=== PATIENT | male | born 1945 | race Caucasian/White ===

== ENCOUNTER 2016-11-26 13:48 | Inpatient (IN) ==
[2016-11-26] MEDS ORDERED: *HR* Ticagrelor 90 MG TABLET PO ONE (13:51)
[2016-11-26] MEDS ORDERED: *HR* Heparin 5,000 UNIT/ML VIAL IVP ONE (13:52)
[2016-11-26] MEDS ORDERED: *HR* Midazolam HCl 2 MG/2 ML VIAL ONE (13:52)
[2016-11-26] MEDS ORDERED: 0.9 % Sodium Chloride 1,000 ML ONE ×2 (13:53→13:58)
[2016-11-26] MEDS ORDERED: *HR* FentaNYL (PF) 100 MCG/2 ML VIAL ONE (13:53)
--- NOTE | 2016-11-26 13:55 | Emergency Department Note ---
Disposition Clinical Impression: ST elevation myocardial infarction (STEMI) Qualifiers: Involved coronary artery: unspecified coronary artery Qualified Code(s): I21.3 - ST elevation (STEMI) myocardial infarction of unspecified site Disposition: Admitted As Inpatient Condition: Critical Forms: ED Satisfaction Letter Time of Disposition: 14:03 Chest Pain HPI - General Chief Complaint: ED Chest Pain Stated Complaint: Chest Pain Time Seen by Provider: 11/26/16 13:50 Source: patient, EMS Mode of arrival: EMS Limitations: no limitations Vital Signs Reviewed: Yes Nursing Notes Reviewed: Yes - History of Present Illness HPI Narrative: 70-year-old who developed chest pain about 20-30 minutes prior to arrival. - Related Data Home Medications Medication Instructions Recorded Confirmed Duloxetine [Cymbalta] 30 mg PO DAILY 08/01/16 08/01/16 Levothyroxine [Synthroid] 175 mcg PO 0630 08/01/16 08/01/16 Meloxicam [Mobic] 7.5 mg PO DAILY 08/01/16 08/01/16 Omeprazole [PriLOSEC] 40 mg PO DAILY 08/01/16 08/01/16 Previous Rx's Medication Instructions Recorded Clindamycin [Cleocin] 150 mg PO Q6HR #8 capsule 07/31/16 OxyCODONE Immed Rel [Roxicodone 5 5 - 10 mg PO Q8HR PRN #30 tablet 07/31/16 MG] Allergies Allergy/AdvReac Type Severity Reaction Status Date / Time codeine AdvReac Severe Abdominal Verified 08/01/16 12:02 Pain Constitutional: Denies: fever, chills, weakness, weight change Eyes: Denies: eye pain, eye discharge, vision change ENT ED: Denies: ear pain, throat pain, dental pain, hearing loss, epistaxis, congestion, dysphagia Cardiovascular: Reports: chest pain. Denies: palpitations, dyspnea on exertion , edema, syncope Respiratory: Denies: cough, dyspnea, wheezes, hemoptysis, stridor Gastrointestinal: Denies: abdominal pain, nausea, vomiting, diarrhea, constipation, hematemesis, melena, hematochezia Genitourinary: Denies: urgency, dysuria, frequency, hematuria Musculoskeletal: Denies: back pain, neck pain, arthralgia, myalgia Integumentary: Denies: rash, abrasion, lesions Neurological: Denies: headache, weakness, numbness, paresthesias, confusion, abnormal gait, vertigo Psychiatric: Denies: anxiety, depression, suicidal thoughts, homicidal thoughts , auditory hallucinations, visual hallucinations Endocrine: Denies: fatigue Hematological/Lymphatic: Denies: easy bleeding, easy bruising Allergic/Immunologic: Denies: facial swelling, urticaria Chest Pain PMH - Past Medical History Medical history: Reports: fibromyalgia, GERD, thyroid disease Surgical history: Reports: orthopedic, other, sinus surgery Psychiatric history: Reports: no psych history - Social History Smoking Status: Former smoker Alcohol use: Reports: heavy Drug use: Reports: none Physical Exam - General Limitations: no limitations General appearance: alert, in no apparent distress - Head Head exam: atraumatic, normocephalic, normal inspection - Eye Eye exam: Present: normal appearance, PERRL, EOMI - ENT ENT exam: normal exam, normal oropharynx, mucous membranes moist - Neck Neck exam: Present: normal inspection, full ROM, trachea midline - Chest Chest inspection: Present: normal inspection, symmetric chest wall rise - Respiratory Respiratory exam: Present: normal lung sounds bilaterally - Cardiovascular Cardiovascular exam: Present: regular rate, normal rhythm, normal heart sounds - Abdominal Exam Abdominal exam: Present: soft, Non-Tender. Absent: tenderness, distention, guarding, rebound, rigidity - Extremities Exam Extremities exam: Present: normal inspection, full ROM. Absent: tenderness, pedal edema - Expanded Lower Extremity Exam Neurovascular/Tendon exam: Absent: motor deficit, sensory deficit, tendon deficit Gait: observed and normal - Back Exam Back exam: Present: normal inspection, full ROM. Absent: tenderness - Neurological Exam Neurological exam: Present: alert, oriented X3 - Psychiatric Psychiatric exam: Present: normal affect, normal mood - Skin Skin exam: Present: warm, dry, intact, normal color Course - Consultations Consultation #1: [facility] and was sent immediately to the catheter lab. STEMI was initiated at that time. Time: 14:03 Chest Pain - EKG Data EKG attestation: Yes I reviewed and interpreted this EKG. EKG shows normal: sinus rhythm Rate: bradycardia Rhythm: NSR ST segment elevation in: II, III, aVF ST segment depression in: v1, v2 Interpretation: acute ME Heart Score - Score History: Highly Suspicious EKG: Significant ST-Depression Age: Greater than 65 Risk Factors: Equal/Greater than 3 risk factor or history of atherosclerotic disease Troponin: Less than normal limit HEART Score Total: 8 Critical Care Time Critical Care Time: Yes Total Critical Care Time: 30 Attestation: The high probability of a clinically significant, sudden or life threatening deterioration of the [cardiovascular] system(s) required my full and direct attention, intervention and personal management. The aggregate critical care time was [30] minutes. This time is in addition to time spent performing reported procedures but includes the following: [x] Data Review and interpretation [x] Patient assessment and monitoring of vital signs [x] Documentation [x] Medication orders and management
[2016-11-26 14:01] LABS: Basophils # 0.1 K/mcL (0.0-0.2); Basophils % 0.4 %; Eosinophils # 0.4 K/mcL (0.0-0.6); Hematocrit 50.1 % (37.5-50.1); Hemoglobin 16.5 g/dL (12.9-16.9); Immature Granulocytes % 0.4 % (0-4); Lymphocytes # 5.2 K/mcL (0.6-4.6); Lymphocytes % 38.2 %; Mean Corpuscular HGB Conc 32.9 g/dL (31.6-35.5); Mean Corpuscular Hemoglobin 30.3 pg (28.0-33.3); Mean Corpuscular Volume 91.9 fL (83.0-100.0); Mean Platelet Volume 11.4 fL (9.4-12.4); Monocytes # 1.6 K/mcL (0.0-1.3); Neutrophils # 6.2 K/mcL (1.6-8.9); Platelet Count 283 K/mcL (140-400); Red Blood Count 5.45 M/mcL (4.19-5.50); Red Cell Distribution Width 14.5 % (11.5-14.5)
[2016-11-26 14:05] LABS: Prothrombin Time 11.3 Seconds (9.4-12.1)
[2016-11-26 14:08] LABS: Activated Partial Thrombo Time 27.1 Seconds (26.0-36.0)
[2016-11-26 14:12] LABS: Calcium 9.4 mg/dL (8.6-10.8); Potassium 4.7 mEq/L (3.5-4.5)
[2016-11-26] MEDS ORDERED: Tirofiban 12.5 MG/250ML 12.5 MG/250 ML BAG ONE (14:25)
[2016-11-26] MEDS ORDERED: Ondansetron 4 MG/2 ML VIAL ONE (14:26)
[2016-11-26] MEDS ORDERED: *HR* Metoprolol 5 MG/5 ML VIAL IVP ONE (14:51)
[2016-11-26] MEDS ORDERED: *HR* Morphine 2 MG/ML SYRINGE ONE (14:56)
[2016-11-26] MEDS ORDERED: Ondansetron 4 MG/2 ML VIAL IVP PRN (15:19)
[2016-11-26] MEDS ORDERED: *HR* Morphine 2 MG/ML SYRINGE IVP PRN (15:23)
[2016-11-26] MEDS ORDERED: *HR* Dextrose 50 % in Water (Syg) 50 ML SYRINGE IVP PRN (15:26)
[2016-11-26] MEDS ORDERED: D5% in Water 1,000 ML IVC PRN (15:26)
[2016-11-26] MEDS ORDERED: Dextrose Gel 15 GM PO PRN ×2 (15:26)
[2016-11-26] MEDS ORDERED: Tirofiban 12.5 MG/250ML 12.5 MG/250 ML BAG IVC SCH (15:30)
--- NOTE | 2016-11-26 16:03 | Invasive Diagnostic Lab Proc ---
Name: Shiraz Rocha Given Date of Study: 11/26/2016 Date: 1945 Ht: 72.0in Medical Record#: [id number] Age: 70 Wt: 230.38lb Gender: Male BSA: 2.26 Order #: [id number] BMI: 31.24 Physicians Procedure Physician: Jose Baltazar MD, [facility] Referring MD: Referring MD: Indications Indication STEMI Procedures Performed Procedure L HRT ARTERY/VENTRICLE ANGIO PRQ CARD REVASC UT 1 VSL Pre-Procedure Checklist Pt not NPO for procedure and MD aware. Blood Pressure: 195/104 Rhythm: NSR Plan of Care Patient will tolerate the procedure without complications. Adequate level of comfort will be maintained. Hemodynamics will remain stable Patient will recover from procedure without complications. Respiratory function will be maintained. Cardiac rhythm will remain stable. Patient temperature will be maintained. Patient and/or family have verbalized understanding of the procedure. Patient Education Intravenous Access Time IV Size Location DC'd Fluid/Drip Rate Units RN 02:00 PM 18g 1 09/04" Patent On Arrival Rt Antecubital 0.9NaCl 25 ml/hr Allergies codeine Vital Signs Time BP (mmHg) HR (bpm) O2 Sat. RR (bpm) LOC 02:07 PM 195 / 104 63 98 % 5 = Fully awake and oriented or at pre-proc level 02:20 PM 183 / 98 60 92 % 13 5 = Fully awake and oriented or at pre-proc level 02:25 PM 143 / 95 28 94 % 13 5 = Fully awake and oriented or at pre-proc level 02:30 PM 147 / 96 123 93 % 11 5 = Fully awake and oriented or at pre-proc level 02:35 PM 163 / 84 115 92 % 13 5 = Fully awake and oriented or at pre-proc level 02:41 PM 154 / 97 131 99 % 14 5 = Fully awake and oriented or at pre-proc level 02:46 PM 158 / 86 138 99 % 21 5 = Fully awake and oriented or at pre-proc level 02:50 PM 164 / 91 115 97 % 16 5 = Fully awake and oriented or at pre-proc level 02:55 PM 167 / 92 135 % 17 5 = Fully awake and oriented or at pre-proc level 03:00 PM 138 / 83 121 97 % 19 5 = Fully awake and oriented or at pre-proc level 03:05 PM 152 / 88 103 92 % 21 5 = Fully awake and oriented or at pre-proc level 03:10 PM 149 / 76 106 95 % 16 5 = Fully awake and oriented or at pre-proc level 03:15 PM 153 / 101 109 94 % 12 5 = Fully awake and oriented or at pre-proc level 03:20 PM 142 / 92 123 95 % 10 5 = Fully awake and oriented or at pre-proc level 03:25 PM 145 / 88 120 93 % 17 5 = Fully awake and oriented or at pre-proc level 03:30 PM 145 / 66 59 93 % 16 5 = Fully awake and oriented or at pre-proc level Procedural Medications Time Medication Dose Units Method Given By 02:07 PM Oxygen 2 L/min nasal cannula LiscombJanett guzman RN 02:07 PM Versed 2 mg Intravenous LiscombJanett guzman RN 02:07 PM Fentanyl 50 mcg Intravenous LiscombJanett guzman RN 02:08 PM Lidocaine 2% 20 ml Subcutaneous Jose Baltazar MD, FACC 02:14 PM Hydralazine 20 mg Intravenous LiscombJanett guzman RN 02:20 PM Fentanyl 50 mcg Intravenous MurphyJanett guzman RN 02:24 PM Oxygen 4 L/min nasal cannula LiscombJanett guzman RN 02:27 PM Zofran 4 mg Intravenous Amara Galvez RN 02:27 PM Aggrastat Bolus: 50 ml Amara Galvez RN 02:27 PM Aggrastat 5mg/100ml 18 ml Intravenous Amara Galvez RN 02:28 PM Oxygen 6 L/min nasal cannula LiscombJanett guzman RN 02:30 PM Oxygen 10 L/min simple face mask Janett Arrington RN 02:41 PM Nitroglycerin 200 mcg Intracoronary Jose Baltazar MD 02:46 PM Oxygen 6 L/min oxy mask LiscombJanett guzman RN 02:50 PM Metoprolol 5 mg Intravenous MurphyJanett guzman RN 02:55 PM Morphine 2 mg Intravenous Amara Galvez RN 03:24 PM Cardizem 15 mg Intravenous Amara Galvez RN 03:24 PM Cardizem 5 mg Intravenous Amara Galvez RN ASA Classification: Emergent Procedure: ASA score is assumed Derrick Score Preprocedure Postprocedure Activity 2- Moves 4 extremities sustained head lift Activity 2- Moves 4 extremities sustained head lift Circulation 2- SBP +/= 20 points of pre-anesthetic level Circulation 2- SBP +/= 20 points of pre-anesthetic level Consciousness 2- Awake and alert oriented x 3 Consciousness 2- Awake and alert oriented x 3 O2 Saturation 2- Able to maintain O2 satruation of 92% on room air O2 Saturation 2- Able to maintain O2 satruation of 92% on room air Respiratory 2- Able to deep breathe and cough well Respiratory 2- Able to deep breathe and cough well Total Score 10 Total Score 10 Contrast Agent: Isovue Diagnostic Contrast: 156 ml Total Contrast: 156 ml Fluoro Dose: 1183 mGy Activated Clotting Time Time Seconds to Clot 02:33 PM 246 02:48 PM 160 Procedure Log Time Note Enter By 02:02 PM Meet and greet completed ejohnson 02:02 PM Sign in performed according to hospital policy. ejohnson 02:02 PM Procedure start 14:06 ejohnson 02:02 PM Pt arrived to [facility] at 14:02 ejohnson 02:02 PM No labs available at this time ejohnson 02:03 PM Hair removed from procedure site in procedure lab using clippers. Bilateral groin and right wrist prepped with Chloraprep by Savita Diaz (R), safety strap applied then patient was draped. Skin intact. ejohnson 02:05 PM Patient charges- Angio tray pack, Navilyst 3mm J, Pulse Oximetry and ACIST tubing and transducer ejohnson 02:05 PM NIBP STAT measurement started. 02:06 PM Case Delayed No ejohnson 02:07 PM HR=63 bpm, VDWG=036/104 mmhg, SpO2=98.0 %, Comment=SR 02:07 PM Time out performed according to hospital policy ejohnson 02:07 PM Time: 14:07 Oxygen on at 2 L/min per nasal cannula by Janett Arrington RN ejohnson 02:07 PM Time: 14:07 Versed 2 mg Intravenous Given by Janett Arrington RN ejohnson 02:07 PM Time: 14:07 Fentanyl 50 mcg Intravenous Given by Janett Arrington RN ejohnscristhian 02:08 PM Recorded ECG: HR=30 Condition=Condition 1 02:08 PM Time: 14:08 20 ml Lidocaine 2% to right groin Subcutaneous Given by Jose [facility]zar MD, [facility] ejohnson 02:09 PM Access obtained by percutaneous puncture. 6Fr 10cm Terumo Moberly sheath placed in right Femoral artery. [id number] ejohnson 02:10 PM 5Fr FL 4 catheter inserted over the wire DNC ejohnson 02:11 PM Catheter removed ejohnson 02:12 PM 5Fr FR 4 catheter inserted over the wire DNC ejohnson 02:12 PM Catheter removed ejohnson 02:12 PM 5Fr 3DRC catheter inserted over the wire [id number], then wire removed ejohnson 02:14 PM Catheter removed ejohnson 02:14 PM 5Fr AR 1 catheter inserted over the wire [id number] ejohnson 02:15 PM Time: 14:14 Hydralazine 20 mg Intravenous Given by Janett Arrington RN ejohnson 02:15 PM 5Fr catheter inserted over the wire DNC ejohnson 02:16 PM 6Fr CLS 3.5 Runway guide catheter was used to cannulate the PCI vessel successfully. reused? No ejohnson 02:16 PM LCA angiography performed in multiple views. ejohnson 02:17 PM Recorded Pressure: Ao, HR=57, Condition=Condition 1 (Aorta) Ao 185/98/132 02:17 PM Inflation device was opened. ejohnson 02:18 PM .014 PT Graphix 180cm guide wire across target lesion- successful. reused? No ejohnson 02:18 PM Recorded Pressure: Ao, HR=61, Condition=Condition 1 (Aorta) Ao 176/95/127 02:19 PM Balloon inflated @ 8 serena for 4 seconds ejohnson 02:19 PM Balloon inflated @ 10 serena for 7 seconds ejohnson 02:19 PM 2.5 mm x 20 mm Emerge Monorail balloon across target lesion- successful. reused? No ejohnson 02:20 PM Time: 14:20 Fentanyl 50 mcg Intravenous Given by Janett Arrington RN ejohnson 02:20 PM Vitals capture started with the following parameters, Patient=Adult, Interval=5 min, Initial Pqoxjcgl=540 mmHg, Deflation Rate=5 mmHg, Cuff placed on Left Arm 02:20 PM Balloon inflated @ 8 serena for 4 seconds ejohnson 02:20 PM HR=60 bpm, ZEBH=592/98 mmhg, SpO2=92.0 %, Resp=13 B/min, Comment=SR 02:20 PM Balloon catheter removed intact. ejohnson 02:22 PM Recorded Pressure: Ao, HR=69, Condition=Condition 1 (Aorta) Ao 158/88/117 02:22 PM 3.5mm x 38mm Synergy drug-eluting stent across target lesion- successful Lot #[id number] ejohnson 02:24 PM Recorded Pressure: Ao, HR=57, Condition=Condition 1 (Aorta) Ao 112/66/87 02:24 PM Time: 14:24 Oxygen on at 4 L/min per nasal cannula by Janett Arrington RN ejohnson 02:25 PM HR=28 bpm, CQFJ=758/95 mmhg, SpO2=94.0 %, Resp=13 B/min, Comment=SR 02:27 PM Time: 14:27 Zofran 4 mg Intravenous Given by Amara Galvez RN ejohnscristhian 02:27 PM Time: 14:27 Aggrastat Bolus: 50 ml Given by Amara Galvez RN Andres pump ejnerissanson 02:28 PM Time: 14:27 Aggrastat 5mg/100ml 18 ml Intravenous Given by Amara Galvez RN Andres pump ejohnson 02:28 PM Recorded Pressure: Ao, RG=297, Condition=Condition 1 (Aorta) Ao 115/88/101 02:28 PM Time: 14:28 Oxygen on at 6 L/min per nasal cannula by Janett Arrington RN ejohnson 02:29 PM 3.5mm x 16mm Synergy drug-eluting stent across target lesion- successful Lot #[id number] ejohnson 02:29 PM Balloon inflated @ 14 serena for 56 seconds ejohnson 02:30 PM Stent delivery system removed intact. ejohnson 02:30 PM Time: 14:30 Oxygen on at 10 L/min per oxy face mask by Janett Arrington RN ejohnson 02:30 PM 4.0 mm x 15mm NC Emerge balloon across target lesion- successful. reused? No ejohnson 02:30 PM ID=[id number] bpm, JKMD=873/96 mmhg, SpO2=93.0 %, Resp=11 B/min, Comment=SR 02:32 PM Balloon inflated @ 12 serena for 6 seconds ejohnson 02:33 PM Balloon catheter removed intact. ejohnson 02:33 PM Guide wire removed intact. ejohnson 02:33 PM Guide catheter removed intact. ejohnson 02:35 PM 5Fr MPA catheter inserted over the wire [id number] ejohnson 02:35 PM Catheter removed ejohnson 02:35 PM 5Fr IM catheter inserted over the wire [id number] ejohnson 02:35 PM HP=006 bpm, OWFO=297/84 mmhg, SpO2=92.0 %, Resp=13 B/min, Comment=SR 02:36 PM RCA angiography performed in multiple views. ejohnson 02:37 PM Catheter removed ejohnson 02:37 PM 5Fr AL catheter inserted over the wire [id number] ejohnson 02:39 PM Pressure channel 1 zero failed. 02:39 PM Pressure channel 1 zero failed. 02:39 PM Pressure channel 1 zeroed. 02:40 PM Catheter removed ejohnson 02:40 PM Wire removed ejohnson 02:40 PM 5Fr Pigtail catheter inserted over the wire [facility] ejohnson 02:40 PM Catheter selectively placed in left ventricle ejohnson 02:40 PM Bolus angiogram of left Ventricle complete: 8 ml/sec for a total of 24 mls ejohnson 02:41 PM Recorded Pressure: LV, OH=775, Condition=Condition 1 (Left Ventricle) LV 167/27/53 02:41 PM Recorded Pressure: LV, Ao, QR=545, Condition=Condition 1 (Left Ventricle) LV 163/22/42, (Aorta) Ao ?/?/? 02:41 PM ZG=215 bpm, GZUZ=534/97 mmhg, SpO2=99.0 %, Resp=14 B/min, Comment=SR 02:41 PM Time: 14:41 Nitroglycerin 200 mcg Intracoronary Given by Jose Baltazar MD ejohnson 02:42 PM Recorded Pressure: LV, Ao, RS=590, Condition=Condition 1 (Left Ventricle) LV 120/22/72, (Aorta) Ao ?/?/? 02:46 PM MH=208 bpm, YKBY=661/86 mmhg, SpO2=99.0 %, Resp=21 B/min, Comment=SR 02:47 PM Time: 14:46 Oxygen on at 6 L/min per oxy mask by Janett Arrington RN ejohnson 02:47 PM Catheter removed ejohnson 02:47 PM Procedure completed at 14:47 ejohnson 02:47 PM Sign out completed: Radiation Dose 1182.61 mGy Fluoro Time: 10.6 Isovue 370 - 200ml contrast 156 ml given by Jose Baltazar MD, [facility]. Complications: NoneCardiac Rehab Consult needed: YesConfirmed administered medications: Yes ejohnson 02:47 PM Isovue 370 - 200ml,1 Bottle(s) used. ejohnson 02:49 PM Post ECG Atrial Fibrillation ejohnson 02:49 PM Post Blood Pressure 158/86 ejohnson 02:49 PM 14:49 Post Pulses Bilateral DP \\T\\ PT 1+ ejohnson 02:50 PM Information taught Cardiac Cath and PCI ejohnson 02:50 PM Education needs Procedure, Plan of Care, and Disease Process ejohnson 02:50 PM Time: 14:50 Metoprolol 5 mg Intravenous Given by Janett Arrington RN ejohnson 02:50 PM GS=874 bpm, FAFT=647/91 mmhg, SpO2=97.0 %, Resp=34 B/min, Comment=SR 02:52 PM Learning barriers :None ejohnson 02:52 PM Education Methods Verbal ejohnson 02:52 PM Education evaluation Able to repeat information ejohnson 02:54 PM Time: 14:54 Heparin 2000 units Intravenous Given by Amara Galvez RN ejvtnscristhian 02:54 PM Time: 14:54 Fentanyl 50 mcg Intravenous Given by Amara Galvez RN ejohnson 02:55 PM DB=727 bpm, RXTB=786/92 mmhg, Resp=17 B/min, Comment=SR 02:55 PM Time: 14:55 Morphine 2 mg Intravenous Given by Amara Galvez RN ejvtnscristhian 03:00 PM Arterial sheath pulled using manual compression and sterile 4x4 for 20 minutes by Ynes Gallardo RT (R) ejvtnscristhian 03:00 PM LK=481 bpm, HIRL=234/83 mmhg, SpO2=97.0 %, Resp=9 B/min 03:05 PM VL=934 bpm, KAUY=347/88 mmhg, SpO2=92 %, Resp=21 B/min 03:10 PM TD=065 bpm, ZIZP=858/76 mmhg, SpO2=95.0 %, Resp=36 B/min 03:10 PM Coronary Dominance: right ejohnson 03:11 PM Lesion found in Proximal Circumflex. Pre Stenosis: 100 Pre EDUARDA Flow: 0: No Flow/No perfusion ejohnson 03:11 PM Circumflex, Obtuse Marginal, Left Posterior Descending, and Left Posterolateral Coronary Arteries with 100 % stenosis. ejohnson 03:15 PM RS=174 bpm, GIRI=849/101 mmhg, SpO2=94.0 %, Resp=12 B/min, Comment=SR 03:20 PM Site status No bleeding/hematoma - Rt Groin as reported by Ynes Gallardo RT (R) at 15:20 ejohnson 03:20 PM Time: 15:24 Cardizem 15 mg IV bolus over 5 minutes Intravenous Given by mAara Galvez RN ejohnson 03:20 PM ID=[id number] bpm, ELGS=594/92 mmhg, SpO2=95 %, Resp=10 B/min 03:25 PM TY=256 bpm, AQQZ=472/88 mmhg, SpO2=93.0 %, Resp=17 B/min, Comment=SR 03:25 PM Time: 15:24 Cardizem 5 mg Intravenous Given by Amara Galvez RN Andres pump ejohnson 03:26 PM Recorded Pressure: Ao, HR=65, Condition=Condition 1 (Aorta) Ao -16/-16/-16 03:30 PM HR=59 bpm, WBRT=331/66 mmhg, SpO2=93 %, Resp=16 B/min 03:40 PM Family placed in holding area, ICU. ejohnson 03:40 PM Complications: None ejohnson 03:40 PM Patient out of room: 15:40 ejohnson Complications Complication None None Hemodynamics Pressures Site Systolic/A Wave Diastolic/V Wave Mean AO 185 98 132 AO 176 95 127 AO 158 88 117 AO 112 66 87 AO 115 88 101 LV 167 27 53 LV 163 22 42 AO LV 120 22 72 AO AO -16 -16 -16 Post Procedure Information Blood Pressure: 158/86 mmHg Rhythm: Atrial Fibrillation Post procedural instructions were given Closure Device Time Device Success/Fail 11/26/2016 3:00:00 PM Mechanical Compression Successful Site Checks Time Location Status Staff Sheath In? Note 03:40 PM Rt Groin No bleeding/hematoma Ynes Gallardo RT (R) Pulses Time Site Pre-Procedure Post-Procedure Note 2:02:00 PM Bilateral DP \\T\\ PT 1+ 11/26/2016 3:09:00 PM Bilateral DP \\T\\ PT 1+ Updated by Amara Galvez RN on 11/26/2016 3:58:11 PM Amara Galvez RN electronically signed on 11/26/2016 3:58:51 PM with status of Final
[2016-11-26] MEDS ORDERED: *HR* Morphine 2 MG/ML SYRINGE IVP ONE (16:35)
[2016-11-26] MEDS ORDERED: Nitroglycerin 1 INCH/GM PACKET ONE (18:00)
--- NOTE | 2016-11-26 18:00 | Pre-Sedation Evaluation ---
Pre-sedation evaluation - Pre-sedation checklist Date of procedure: 11/26/16 Procedure: [facility] Recent Vitals: Last Vital Signs Temp 97.6 F 11/26/16 16:19 Pulse 54 11/26/16 17:19 Resp 20 11/26/16 17:19 BP 167/99 11/26/16 17:19 Pulse Ox 96 11/26/16 17:19 H&P (including ROS) documented in medical record: Yes Previous reaction to sedatives/anesthetics: No Dietary Status: unknown Airway Assessment: Patient can open mouth completely, TMJ function normal If Yes;: Morbid obesity ASA Classification *see protocol: CLASS II-Mild systemic disease, E-EMERGENCY- Add to any of the above to indicate emergent Plan of Care: Pt appropriate candidate for procedure/moderate/conscious sedation , Risks/benefits of procedure/sedation discussed w/ patient/family (stemi)
--- NOTE | 2016-11-26 18:02 | Cardiology History & Physical ---
Date of Encounter: 11/26/16 Time of Encounter: 18:00 Assessment and Plan (1) ST elevation myocardial infarction (STEMI) Current Visit: Yes Status: Acute Emergent LHC for STEMI with ongoing crushing chest pressure. Aspirin, Brilinta , Heparin. Patient aware and agreeable with plan. EF assessment, cardiac rehab. The assessment and plan as outlined above was discussed with the patient and/or family members who expressed understanding and agreement. All questions were answered. Qualifiers: Involved coronary artery: other inferior wall coronary artery Qualified Code(s): I21.19 - ST elevation (STEMI) myocardial infarction involving other coronary artery of inferior wall (2) HTN (hypertension) Current Visit: Yes Status: Acute The assessment and plan as outlined above was discussed with the patient and/or family members who expressed understanding and agreement. All questions were answered. Qualifiers: Hypertension type: essential hypertension Qualified Code(s): I10 - Essential (primary) hypertension History of Present Illness Chief complaint: chest pain HPI: Mr. Rocha is a 70 year old male with no previous cardiac history (PMHx fibromyalgia and HTN) presents with severe >10/10 crushing chest pressure slightly radiating backwards but not reaching the back without a tearing/sharp sensation associated with dyspnea starting this morning. EKG shows inferolateral STEMI and emergently taken to [facility]. Past Med Surg Social Fam HX - Past Medical History Medical history: fibromyalgia, GERD, thyroid disease Psychiatric history: no psych history - Past Surgical History Surgical History: orthopedic, other, sinus surgery - Social History Smoking Status: Former smoker Smokeless Tobacco Status: Yes (VAPES) Alcohol use: heavy Drug use: marijuana Medications and Allergies Duloxetine [Cymbalta] 30 mg PO BID 08/01/16 [History] Levothyroxine [Synthroid] 175 mcg PO 0630 08/01/16 [History] Omeprazole [PriLOSEC] 40 mg PO DAILY 08/01/16 [History] Allergies codeine Adverse Reaction (Severe, Verified 08/01/16 12:02) Abdominal Pain severe pain All Systems Review: A 10-system review of systems was performed and is negative for pertinent findings except as documented above in the HPI. - Constitutional Constitutional: no chills, no fever(s) - EENT Eyes: no blurred vision, no loss of vision Nose, mouth and throat: no bleeding gums, no epistaxis - Cardiovascular Cardiovascular: chest pain at rest, chest pain with exertion, dyspnea at rest - Respiratory Respiratory: no hemoptysis, no wheezing - Gastrointestinal Gastrointestinal: no hematemesis, no hematochezia - Genitourinary Genitourinary: no hematuria, no nocturia - Neurological Neurological: no focal weakness, no syncope - Psychiatric Psychiatric: no anxiety, no depression - Hematological/Lymphatic Hematologic/Lymphatic: no easy bleeding, no easy bruising Physical Examination Vital Signs, Last 4 Hours Pulse Resp BP Pulse Ox 11/26/16 17:19 54 20 167/99 96 General: Conversant, Other (distressed) HEENT: Atraumatic, Normocephaly Neck: No JVD Cardiac: Reg Rate and Rhythm Lungs: Normal Breath Sounds Neuro: Alert and responsive Abdomen: Soft Skin: No rashes noted on visualized skin Musculoskeletal: No Chest Wall Tenderness Extremities: No Cyanosis Results 11/26/16 13:53 11/26/16 13:53 - EKG Interpretation EKG results cardiology: personally reviewed (inferolateral current of injury)
[2016-11-26] MEDS: Nitroglycerin 1 INCH/GM PACKET TP ONE (18:03)
[2016-11-26] MEDS: Insulin LISPRO 300 UNITS/3 ML VIAL SQ SCH (18:04)
[2016-11-26] MEDS: *HR* Ticagrelor 90 MG TABLET PO SCH (20:24)
[2016-11-26] MEDS ORDERED: Insulin LISPRO 300 UNITS/3 ML VIAL SQ SCH (21:00)
[2016-11-27 03:52] LABS: Basophils % 0.2 %; Eosinophils # 0.1 K/mcL (0.0-0.6); Eosinophils % 0.7 %; Hematocrit 44.6 % (37.5-50.1); Immature Granulocytes % 0.5 % (0-4); Lymphocytes # 2.2 K/mcL (0.6-4.6); Lymphocytes % 12.5 %; Mean Corpuscular HGB Conc 32.7 g/dL (31.6-35.5); Mean Corpuscular Hemoglobin 30.2 pg (28.0-33.3); Mean Corpuscular Volume 92.1 fL (83.0-100.0); Monocytes # 1.7 K/mcL (0.0-1.3); Monocytes % 9.6 %; Neutrophils # 13.3 K/mcL (1.6-8.9); Platelet Count 262 K/mcL (140-400); Red Blood Count 4.84 M/mcL (4.19-5.50); Red Cell Distribution Width 14.5 % (11.5-14.5); Segmented Neutrophils % 76.5 %
[2016-11-27 03:55] LABS: Hemoglobin 14.6 g/dL (12.9-16.9)
[2016-11-27 04:07] LABS: BUN/Creatinine Ratio 13 (6-26); Blood Urea Nitrogen 15 mg/dL (8-26); Calcium 8.7 mg/dL (8.6-10.8); Carbon Dioxide 21 mEq/L (19-29); Chloride 110 mEq/L (98-109); Glucose 119 mg/dL (70-99); Osmolality,Calculated 290 (280-300); Potassium 3.8 mEq/L (3.5-4.5); Sodium 139 mEq/L (136-145); eGFR For African Americans > 60 (> 60); eGFR For Non-African Americans > 60 (> 60)
[2016-11-27] MEDS: Insulin LISPRO 300 UNITS/3 ML VIAL SQ SCH (07:55)
[2016-11-27] MEDS: *HR* Ticagrelor 90 MG TABLET PO SCH ×2 (07:55→20:31)
[2016-11-27] MEDS ORDERED: Aspirin 81 MG TAB.CHEW PO SCH (09:00)
--- NOTE | 2016-11-27 09:15 | Electrocardiograph Report ---
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
--- NOTE | 2016-11-27 09:15 | Electrocardiograph Report ---
[address] [place], [place] [address] Test Date: 2016-11-26 Pat Name: Shiraz Rocha Department: 109 Room: 01 Gender: M Netezza Developer: : 1945 Requested By: Jose Baltazar Order Number: [id number] Reading MD: Jose Baltazar MD Measurements Intervals [place] Rate: 54 P: 1 [place]: 163 QRS: -47 QRSD: 93 T: 17 QT: 447 QTc: 434 Interpretive Statements SINUS BRADYCARDIA LEFT ANTERIOR FASCICULAR BLOCK MODERATE VOLTAGE CRITERIA FOR LVH, CONSIDER NORMAL VARIANT Electronically Signed On 11-27-2016 9:14:09 EDT by Jose Baltazar MD
--- NOTE | 2016-11-27 09:15 | Electrocardiograph Report ---
[address] [place], [place] [address] Test Date: 2016-11-26 Pat Name: Shiraz Rocha Department: 109 Room: 01 Gender: M Field Support Specialist: : 1945 Requested By: Jose Baltazar Order Number: [id number] Reading MD: Jose Baltazar MD Measurements Intervals [place] Rate: 50 P: 5 TN: 162 QRS: -47 QRSD: 101 T: 21 QT: 453 QTc: 427 Interpretive Statements SINUS BRADYCARDIA LEFT ANTERIOR FASCICULAR BLOCK LEFT VENTRICULAR HYPERTROPHY AND ST-T CHANGE Electronically Signed On 11-27-2016 9:13:58 EDT by Jose Baltazar MD
[2016-11-27] MEDS ORDERED: Perflutren Lipid Microsphere 1.3 ML in 0.9 % Sodium Chloride 8.7 ML IVP ONE (09:25)
--- NOTE | 2016-11-27 09:32 | Invasive Diagnostic Lab ---
Name: Shiraz Rocha Given Date of Study: 11/26/2016 Date: 1945 Ht: 182.9 cm /72.0 in Medical Record#: [id number] Age: 70 Wt: 104.5 kg / 230.38 lb Account/Order#: [id number] Gender: Male BSA: 2.26 Order #: [id number] Fluoro Dose: 1183 mGy BMI: 31.24 Procedure Physician: Jose Baltazar MD, [facility] Referring MD: Referring MD: Procedures Performed: LEFT HEART CATH PCI of Acute CA PTCA W/ DRUG ELUTING STENT Indications: STEMI Impressions: Patient had successful PTCA/Drug-Eluting Stent placement in the mid dominant Circumflex - culprit for CA Recommendations: Optimal medical therapy of patient's disease. Aggressive risk factor modification. History/Risk Factors: Fibromyalgia Procedure Access obtained in the right Femoral artery by percutaneous puncture Patient had successful PTCA/Drug-Eluting Stent placement in the mid Circ. Complications: None Contrast: Isovue 156ml Closure Device: Mechanical Compression Hemodynamics: Pressures Site Systolic/ A Wave Diastolic/ V Wave End Diastolic/ Mean HR AO 185 98 132 57 AO 176 95 127 61 AO 158 88 117 69 AO 112 66 87 57 AO 115 88 101 107 LV 167 27 53 137 LV 163 22 42 106 AO 0 LV 120 22 72 184 AO 0 Coronary Dominance: co Lesion Findings/Interventions * Left Main Coronary Artery The LMCA is angiographically free of disease. * Left Anterior Descending The LAD has mild disease proximal and mid (15-20%). It is a smaller vessel than circumflex/RCA The 1st Diagonal is angiographically free of severe disease. * Circumflex There is a 54 mm long, 100% stenosis in the mid Circumflex. The lesion has a EDUARDA flow of 0 and has thrombus present. An intervention was performed on the mid Circumflex with a final stenosis of 0%. There were no lesion complications. The final EDUARDA flow was 3. * Right Coronary Artery Suboptimal visualization of the RCA despite multiple catheters. No severe lesions visualized and appears to have EDUARDA 3 flow. Interventional Device(s) Vessel Segment Type Name Diameter (mm) Length (mm) Proximal Circumflex Balloon NC Emerge 4 15 Proximal Circumflex Balloon Emerge Monorail 2.5 20 Proximal Circumflex Drug Eluting Stent Synergy 3.5 38 Proximal Circumflex Drug Eluting Stent Synergy 3.5 16 Updated by Amara Galvez RN on 11/26/2016 3:15:05 PM Jose Baltazar MD, FACC electronically signed on 11/27/2016 9:27:42 AM with status of Final
--- NOTE | 2016-11-27 10:14 | Cardiology Progress Note ---
Date of Encounter: 11/27/16 Time of Encounter: 10:11 Assessment and Plan (1) ST elevation myocardial infarction (STEMI) Current Visit: Yes Status: Acute S/P emergent LHC for inferior STEMI yesterday. Successful PTCA/MIGUEL in mid dominant circ--culprit for DE. DAPT (ASA and Brilinta) uninterrupted x 1 year. Pt verbalizes understanding. Continue Statin. Add low dose BB. Echo pending to evaluate EF. Right femoral access site healing well. No bleeding, hematoma or ecchysmosis noted. Pt reports episode of chest pressure last night that resolved with nitro without recurrence. Plan to step down to regular floor today. Possible D/C home tomorrow. Qualifiers: Involved coronary artery: other inferior wall coronary artery Qualified Code(s): I21.19 - ST elevation (STEMI) myocardial infarction involving other coronary artery of inferior wall (2) PAF (paroxysmal atrial fibrillation) Current Visit: Yes Status: Acute Brief episode of PAF s/p LHC in setting of acute DE. Duration very brief without recurrence. No detention anticoagulation warranted unless there would be recurrence. 24 hour tele AVG HR 61, SR. No significant pauses or arrhythmias. Add low dose BB. (3) PRINCE (obstructive sleep apnea) Current Visit: Yes Status: Chronic On CPAP at home. HR into 40s nocturnal. Requested that pt have family bring home CPAP in today. Discussion w patient/family: The assessment and plan as outlined above was discussed with the patient and/or family members who expressed understanding and agreement. All questions were answered. Thank you for involving us in the care of your patient. Please call with any questions. I will discuss all the above with Dr. Ruth and make changes as necessary. Subjective Principal diagnosis: STEMI Interval history: S/P STEMI yesterday--emergent LHC. Successful PTCA/MIGUEL in mid dominant circ-- culprit for DE. Pt had brief episode of PAF immediately post LHC. No recurrence. He reports episode of chest pressure last night relieved with nitro without recurrence. Objective Vital Signs, Last 4 Hours Temp Pulse Resp BP Pulse Ox 11/27/16 08:00 67 14 134/79 94 L 11/27/16 07:47 98.3 F Vital Signs Temp Pulse Resp BP Pulse Ox 11/27/16 08:00 67 14 134/79 94 L 11/27/16 07:47 98.3 F 11/27/16 06:00 70 12 130/95 97 11/27/16 04:24 98.2 F 11/27/16 04:00 58 11/27/16 03:00 60 18 135/87 95 11/27/16 02:30 68 16 138/87 97 11/27/16 01:30 72 16 141/94 94 L 11/27/16 01:00 58 18 138/92 93 L 11/27/16 00:02 97.5 F L 11/27/16 00:00 68 14 136/88 97 11/26/16 22:34 21 137/84 98 11/26/16 22:30 62 12 134/84 98 11/26/16 21:00 60 16 133/79 94 L 11/26/16 20:29 60 12 138/86 95 11/26/16 20:10 97.8 F 11/26/16 19:00 62 12 149/3 97 11/26/16 18:00 51 20 143/91 99 11/26/16 17:19 54 20 167/99 96 11/26/16 16:19 97.6 F 50 20 156/94 96 11/26/16 16:07 55 11/26/16 15:18 159/92 11/26/16 14:00 18 0/0 11/26/16 13:50 97.6 F 53 20 159/92 92 L Intake and Output 11/26/16 11/27/16 11/27/16 23:59 07:59 15:59 Intake Total 480 / 480 473 / 473 240 / 240 Output Total 600 / 600 300 / 300 Balance -120 / -120 173 / 173 240 / 240 Intake: IV Fluids / 33 Aggrastat 12.5 MG/250 ML 33 12.5 mg In 250 ml @ 0.15 MCG/KG/MIN 20.82 mls/hr IVC .Q12H1M [facility] Rx#: [id number] Oral 480 / 480 440 / 440 240 / 240 Output: Urine 600 / 600 300 / 300 Other: Meal Breakfast Percent of Meal Consumed 100% Stool Size Moderate Stool Consistency loose loose Stool Characteristics Normal for Patient Normal for Patient Stool Color Brown Brown # Bowel Movements 1 5 Weight 125.781 kg Patient Weight 11/27/16 23:59 Weight 125.781 kg General: Conversant, No Apparent Distress HEENT: Atraumatic, Normocephaly, Mucus Membranes Moist Neck: No JVD, Normal carotid pulses Cardiac: Reg Rate and Rhythm, Normal S1 and S2, No Murmur Lungs: Normal Breath Sounds, No Wheeze, Rales, Rhonchi Neuro: Alert and responsive, No focal deficits noted Abdomen: Soft, Non-Tender Skin: Other (left femoral access site healing well--no bleeding, hematoma or ecchymosis noted.) Musculoskeletal: No Chest Wall Tenderness Extremities: No Clubbing, No Cyanosis, No Edema, Normal Pulses Results 11/27/16 03:26 11/27/16 03:26 Lab Results 11/27/16 11/27/16 03:26 03:26 WBC 17.4 H Hgb 14.6 D Hct 44.6 Plt Count 262 Sodium 139 Potassium 3.8 Chloride 110 H Carbon Dioxide 21 BUN 15 Creatinine 1.14 Glucose 119 H Calcium 8.7 Short CBC 11/27/16 11/26/16 Range/Units 03:26 13:53 WBC 17.4 H 13.5 H (4.3-11.1) K/mcL Hgb 14.6 D 16.5 (12.9-16.9) g/dL Hct 44.6 50.1 (37.5-50.1) % Plt Count 262 283 (140-400) K/mcL Neutrophils # 13.3 H 6.2 (1.6-8.9) K/mcL BMP 11/27/16 11/26/16 Range/Units 03:26 13:53 Sodium 139 139 (136-145) mEq/L Potassium 3.8 4.7 H (3.5-4.5) mEq/L Chloride 110 H 108 (98-109) mEq/L Carbon Dioxide 21 22 (19-29) mEq/L BUN 15 20 (8-26) mg/dL Creatinine 1.14 1.42 H (0.72-1.25) mg/dL Glucose 119 H 153 H (70-99) mg/dL Calcium 8.7 9.4 (8.6-10.8) mg/dL Cardiac Enzymes 11/26/16 Range/Units 13:53 Troponin I 0.01 (0-0.03) ng/mL Active Medications Acetaminophen (Tylenol) 500 mg PO Q6HR PRN PRN Reason: Mild Pain Stop: 05/28/17 15:24 Last Admin: 11/27/16 02:40 Dose: 500 mg Aspirin (Aspirin) 81 mg PO DAILY [facility] Stop: 05/29/17 09:01 Last Admin: 11/27/16 07:54 Dose: 81 mg Atorvastatin Calcium (Lipitor) 80 mg PO HS [facility] Stop: 05/28/17 21:01 Last Admin: 11/26/16 20:22 Dose: 80 mg Dextrose/Water (Dextrose 50% (Syg)) 25 ml IVP AD PRN PRN Reason: Hypoglycemia Stop: 05/28/17 15:27 Diphenhydramine HCl (Benadryl) 25 mg PO HS PRN PRN Reason: insomnia Stop: 05/28/17 15:20 Glucagon (Glucagen) 1 mg IM ONCE PRN PRN Reason: Hypoglycemia Stop: 05/28/17 15:27 Glucose (Gluctose) 15 gm PO ONCE PRN PRN Reason: Hypoglycemia Stop: 05/28/17 15:27 Glucose (Gluctose) 30 gm PO ONCE PRN PRN Reason: Hypoglycemia Stop: 05/28/17 15:27 Dextrose (Dextrose 5%) 1,000 mls @ 100 mls/hr IVC .Q10H PRN PRN Reason: HYPOGLYCEMIA Stop: 05/28/17 15:27 Insulin Human Lispro (Humalog) 0 units SQ HS [facility] PRN Reason: Protocol Stop: 05/28/17 21:01 Last Admin: 11/26/16 20:30 Dose: Not Given Insulin Human Lispro (Humalog) 0 units SQ TIDAC [facility] PRN Reason: Protocol Stop: 05/28/17 16:31 Last Admin: 11/27/16 07:55 Dose: Not Given Levothyroxine Sodium (Synthroid) 175 mcg PO 0630 [facility] Stop: 05/29/17 06:31 Last Admin: 11/27/16 06:11 Dose: 175 mcg Morphine Sulfate (Morphine Sulfate) 4 mg IVP Q3H PRN PRN Reason: Severe Pain (7-10) Stop: 05/28/17 15:24 Last Admin: 11/26/16 17:33 Dose: 2 mg Nitroglycerin (Nitroglycerin) 1 inch TP ONCE ONE Stop: 11/27/16 17:40 Last Admin: 11/26/16 18:03 Dose: 1 inch Omeprazole (Prilosec) 40 mg PO DAILY [facility] Stop: 05/29/17 09:01 Last Admin: 11/27/16 07:55 Dose: 40 mg Ondansetron HCl (Zofran) 4 mg IVP Q6HR PRN; Protocol PRN Reason: Nausea And Vomiting Stop: 05/28/17 15:20 Last Admin: 11/26/16 17:33 Dose: 4 mg Ticagrelor (Brilinta) 90 mg PO BID [facility] Stop: 05/28/17 21:01 Last Admin: 11/27/16 07:55 Dose: 90 mg - Imaging and Cardiology Echo: pending Cardiac cath: report reviewed - EKG Interpretation EKG results cardiology: other (24 hour tele AVG HR 61, SR. No significant pauses or arrhythmias.) Consult Discharge Plan - Plan Referrals: NO,PCP [Primary Care Provider] -
[2016-11-27] MEDS ORDERED: Metoprolol XL (24 HR) Succ 25 MG TAB.ER.24H PO SCH (10:30)
[2016-11-27] MEDS ORDERED: *HR* Morphine 2 MG/ML SYRINGE IVP PRN (10:44)
[2016-11-27] MEDS ORDERED: Ondansetron 4 MG/2 ML VIAL IVP PRN (10:44)
--- NOTE | 2016-11-27 12:42 | ECHO - Doppler Report ---
Echo with Imaging Enhancement Agent Name: Shiraz Rocha Date of Study: 11/27/2016 Date: 1945 Ht: 72.0 in Medical Record#: [id number] Age: 70 Wt: 277.0 lb Gender: Male BSA: 2.45 Order #: [id number] Location: [facility] Room #: IC1 Reading Physician: Josef Fowler MD, [facility] Cardroom Attendant: Cecelia Benitez Ordering Physician: Jose Baltazar MD, [facility] Primary Physician: Brent Weaver MD Indications: ACS Impressions: Technically sub-optimal due to poor echocardiographic windows. Echo contrast was used. Normal LV systolic function, LVEF 60%. Mild concentric left ventricular hypertrophy. Mild left ventricular diastolic dysfunction. Normal right ventricular size and function. No significant valvular dysfunction. Unable to estimate RVSP due to lack of TR jet. Left Ventricular Wall Motion: Rest Echo Findings All wall segments showed normal motion. Findings: Study Quality * Technically sub-optimal due to poor echocardiographic windows. Echo contrast was used. ECG Findings * Normal sinus rhythm. Left Ventricle * Normal LV systolic function, LVEF 60%. * Mild concentric left ventricular hypertrophy. * Mild left ventricular diastolic dysfunction. Right Ventricle * Normal right ventricular size and function. Left Atrium * Normal left atrial size. Right Atrium * Normal right atrial size. Aorta * Normally sized aortic root. Pericardium * There is no pericardial effusion present. IVC * The IVC is not well evaluated. Aortic Valve * Aortic valve not well visualized. * Normal aortic valve function. Mitral Valve * Mitral valve not well visualized. * Normal mitral valve function. Tricuspid Valve * Tricuspid valve not well visualized. * Normal tricuspid valve function. * Unable to estimate RVSP due to lack of TR jet. Pulmonic Valve * Pulmonic valve not well visualized. * Normal pulmonic valve function. History Hypertension Hypercholesteremia History of CAD/PTCA Myocardial Infarction Contrast: Definity 1.3 ml in 8.7 ml of saline 3 ml. Measurements: BP: 130/ 95 2D Normal Values RVIDd: 3.20 cm IVSd: 1.30 cm 0.6 - 1.0 cm LVIDd: 4.40 cm 3.7 - 5.6 cm LVPWd: 1.20 cm 0.6 - 1.1 cm LVIDs: 2.90 cm 1.5 - 3.6 cm AO: 3.60 cm < 4.0 cm LA volume: 55 Mitral Valve Peak E:.80 m/sec Peak A:1.00 m/sec E/A Ratio:0.8 Updated by Josef Fowler MD, [facility] on 11/27/2016 12:35:25 PM electronically signed on 11/27/2016 12:35:50 PM with status of Final Wall Motion [place]: 1=Normal, 2=Hypokinesis, 3=Akinesis, 4=Dyskinesis, 5=Aneurysmal, 6=Hyperkinetic, X=Not Visualized (Blank)=Missing
[2016-11-27] MEDS: Nitroglycerin 1 INCH/GM PACKET TP ONE (16:05)
[2016-11-27] MEDS ORDERED: 0.9 % Sodium Chloride 1,000 ML IVC SCH (17:00)
[2016-11-27] MEDS: *HR* LORazepam 2 MG/ML VIAL IVP PRN (17:50)
--- NOTE | 2016-11-27 19:17 | Electrocardiograph Report ---
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
[2016-11-28] MEDS: *HR* Metoprolol 5 MG/5 ML VIAL IVP PRN (00:43)
[2016-11-28] MEDS ORDERED: *HR* Heparin 5,000 UNIT/ML VIAL IVP ONE (08:08)
[2016-11-28] MEDS ORDERED: *HR* Heparin 5,000 UNIT/ML VIAL IVP PRN ×2 (08:08)
[2016-11-28] MEDS ORDERED: Heparin 25,000 UNIT/500 ML D5W 25,000 UNIT/500 ML MLS IVC SCH (08:15)
[2016-11-28 08:51] LABS: Basophils % 0.3 %; Eosinophils % 0.3 %; Hematocrit 47.3 % (37.5-50.1); Hemoglobin 15.6 g/dL (12.9-16.9); Immature Granulocytes % 0.5 % (0-4); Immature Platelets 9.7 % (1.1-6.1); Lymphocytes # 1.4 K/mcL (0.6-4.6); Lymphocytes % 10.4 %; Mean Corpuscular Hemoglobin 30.4 pg (28.0-33.3); Mean Corpuscular Volume 92.2 fL (83.0-100.0); Mean Platelet Volume 11.9 fL (9.4-12.4); Monocytes # 2.1 K/mcL (0.0-1.3); Monocytes % 16.3 %; Neutrophils # 9.5 K/mcL (1.6-8.9); Platelet Count 253 K/mcL (140-400); Red Blood Count 5.13 M/mcL (4.19-5.50); Red Cell Distribution Width 14.6 % (11.5-14.5); Segmented Neutrophils % 72.2 %
[2016-11-28 09:00] LABS: INR 1.2; Prothrombin Time 12.6 Seconds (9.4-12.1)
[2016-11-28] MEDS ORDERED: Metoprolol XL (24 HR) Succ 25 MG TAB.ER.24H PO SCH (09:00)
[2016-11-28 09:02] LABS: BUN/Creatinine Ratio 15 (6-26); Blood Urea Nitrogen 20 mg/dL (8-26); Calcium 8.8 mg/dL (8.6-10.8); Carbon Dioxide 15 mEq/L (19-29); Chloride 108 mEq/L (98-109); Glucose 100 mg/dL (70-99); Magnesium 1.6 mg/dL (1.6-2.6); Osmolality,Calculated 281 (280-300); Potassium 3.8 mEq/L (3.5-4.5); Sodium 134 mEq/L (136-145); eGFR For African Americans > 60 (> 60); eGFR For Non-African Americans 52 (> 60)
[2016-11-28 09:02] LABS: Activated Partial Thrombo Time 28.2 Seconds (26.0-36.0)
[2016-11-28] MEDS: Aspirin 81 MG TAB.CHEW PO SCH (09:07)
[2016-11-28] MEDS: *HR* Ticagrelor 90 MG TABLET PO SCH ×2 (09:08→20:08)
[2016-11-28 09:23] LABS: Thyroid Stimulating Hormone 0.043 mcIU/mL (0.350-4.840)
--- NOTE | 2016-11-28 11:13 | Cardiology Progress Note ---
Date of Encounter: 11/27/16 Time of Encounter: 11:10 Assessment and Plan (1) ST elevation myocardial infarction (STEMI) Current Visit: Yes Status: Acute S/P emergent LHC for inferior STEMI 11/26. Successful PTCA/MIGUEL in mid dominant circ--culprit for NH. DAPT (ASA and Brilinta) uninterrupted x 1 year. Pt verbalizes understanding. Continue Statin. Added low dose BB. Echo EF 60%, mild LVH, mild diastolic dysfunction, normal RV structure and function, no significant valvular dysfunction. Right femoral access site healing well. No bleeding, hematoma or ecchysmosis noted. Plan to step down to regular floor today if bed available. Pt reports worsening dyspnea--check CXR. If worsening dyspnea persists, will need to consider switching Brilinta to Plavix. Qualifiers: Involved coronary artery: other inferior wall coronary artery Qualified Code(s): I21.19 - ST elevation (STEMI) myocardial infarction involving other coronary artery of inferior wall (2) PAF (paroxysmal atrial fibrillation) Current Visit: Yes Status: Acute Brief episode of PAF s/p LHC in setting of acute NH. Duration very brief, but now with recurrence and pt has been in A-Fib since yesterday evening. On Cardizem gtt at 15mg/hr and on Toprol XL 12.5mg daily. HR at bedside 60s-low 100s. 24 hour tele AVG HR 110, A-Fib. CHADSVASC score is 2 (Age, CAD). Currently on heparin gtt. Discussed NOAC vs. Coumadin. Will powell check NOAC. Mag 1.6--replace. K 3.8. TSH 0.043. Decrease synthroid to 100mcg. Echo EF 60%, no significant valvular dysfunction. (3) Diarrhea Current Visit: Yes Status: Acute Reports had recent GI virus. Will check for C.Diff while inpt. Qualifiers: Diarrhea type: unspecified type Qualified Code(s): R19.7 - Diarrhea, unspecified (4) Hypothyroidism Current Visit: Yes Status: Chronic Previously hypothyroidism, but now hyperthyroidism. TSH 0.043--decrease synthroid dose to 100mcg. Will have pt follow-up with PCP as outpt. Qualifiers: Hypothyroidism type: unspecified Qualified Code(s): E03.9 - Hypothyroidism , unspecified Discussion w patient/family: The assessment and plan as outlined above was discussed with the patient and/or family members who expressed understanding and agreement. All questions were answered. Thank you for involving us in the care of your patient. Please call with any questions. I will discuss all the above with Dr. Ruth and make changes as necessary. Subjective Principal diagnosis: STEMI Interval history: S/P STEMI and [facility] 11/26. Successful PTCA/MIGUEL in mid dominant circ--culprit for NH. Pt had brief episode of PAF after NH, then went into A-Fib yesterday evening that has persisted. He denies any chest pain. Reports intermittent palpitations and reports dyspnea has worsened. Reports continued diarrhea. Objective Vital Signs, Last 4 Hours Temp Pulse Resp BP Pulse Ox 11/28/16 10:00 96 22 93/73 98 11/28/16 09:00 101 24 93/75 97 11/28/16 08:00 102 26 91/77 98 11/28/16 07:26 96.9 F L Vital Signs Temp Pulse Resp BP Pulse Ox 11/28/16 10:00 96 22 93/73 98 11/28/16 09:00 101 24 93/75 97 11/28/16 08:00 102 26 91/77 98 11/28/16 07:26 96.9 F L 11/28/16 07:00 114 11/28/16 06:00 120 28 97/65 93 L 11/28/16 05:00 122 26 122/106 95 11/28/16 04:00 133 26 106/61 95 11/28/16 03:57 98.4 F 11/28/16 03:40 109 11/28/16 03:00 109 24 97/88 94 L 11/28/16 02:00 115 28 98/69 93 L 11/28/16 01:00 107 24 113/94 99 11/28/16 00:40 99.1 F 11/28/16 00:35 122 11/28/16 00:00 122 24 97/74 95 11/27/16 23:00 113 24 93/75 90 L 11/27/16 22:00 123 26 111/69 91 L 11/27/16 21:00 131 26 119/98 11/27/16 20:53 97.9 F 11/27/16 20:46 121 18 121/77 93 L 11/27/16 20:41 123 11/27/16 20:18 97.9 F 11/27/16 19:00 119 18 139/72 11/27/16 18:30 121 21 125/94 98 11/27/16 18:00 135 22 99/87 97 11/27/16 17:12 84 18 97 11/27/16 11:31 98.0 F Intake and Output 11/27/16 11/28/16 11/28/16 23:59 07:59 15:59 Intake Total 125 / 125 1725 / 1725 70 / 70 Output Total 200 / 200 Balance 125 / 125 1725 / 1725 -130 / -130 Intake: IV Fluids 125 / 125 1125 / 1125 70 / 70 0.9 % Sodium Chloride 1, 1000 / 1000 000 ML @ 75 mls/hr IVC . [id number] [facility] Rx#: [id number] Cardizem 125 MG In 125 / 125 125 / 125 70 / 70 Dextrose 5% 100 ML @ 5 MG /HR 5 mls/hr IVC .Q24H [facility] Rx#:[id number] Oral 600 / 600 Output: Urine 200 / 200 Other: Meal Dinner Percent of Meal Consumed 0% Stool Size Small Stool Consistency liquid liquid Stool Characteristics Normal for Patient Stool Color Yellow Yellow # Voids 3 2 # Bowel Movements 3 2 1 Weight 120.6 kg Patient Weight 11/28/16 23:59 Weight 120.6 kg General: Conversant, No Apparent Distress HEENT: Atraumatic, Normocephaly, Mucus Membranes Moist Neck: No JVD, Normal carotid pulses Cardiac: Other (irregularly irregular) Lungs: Other (diminished) Neuro: Alert and responsive, No focal deficits noted Abdomen: Soft, Non-Tender Skin: No rashes noted on visualized skin Musculoskeletal: No Chest Wall Tenderness Extremities: No Clubbing, No Cyanosis, No Edema, Normal Pulses Results 11/28/16 08:41 11/28/16 08:41 Lab Results 11/28/16 11/28/16 11/28/16 08:37 08:41 08:41 WBC 13.1 H Hgb 15.6 Hct 47.3 Plt Count 253 INR 1.2 APTT 28.2 Sodium 134 L Potassium 3.8 Chloride 108 Carbon Dioxide 15 L BUN 20 Creatinine 1.35 H Glucose 100 H Calcium 8.8 Magnesium 1.6 TSH 0.043 L Short CBC 11/28/16 Range/Units 08:41 WBC 13.1 H (4.3-11.1) K/mcL Hgb 15.6 (12.9-16.9) g/dL Hct 47.3 (37.5-50.1) % Plt Count 253 (140-400) K/mcL Neutrophils # 9.5 H (1.6-8.9) K/mcL BMP 11/28/16 Range/Units 08:41 Sodium 134 L (136-145) mEq/L Potassium 3.8 (3.5-4.5) mEq/L Chloride 108 (98-109) mEq/L Carbon Dioxide 15 L (19-29) mEq/L BUN 20 (8-26) mg/dL Creatinine 1.35 H (0.72-1.25) mg/dL Glucose 100 H (70-99) mg/dL Calcium 8.8 (8.6-10.8) mg/dL Active Medications Acetaminophen (Tylenol) 500 mg PO Q6HR PRN PRN Reason: Mild Pain Stop: 05/28/17 15:24 Aspirin (Aspirin) 81 mg PO DAILY [facility] Stop: 05/29/17 09:01 Last Admin: 11/28/16 09:07 Dose: 81 mg Atorvastatin Calcium (Lipitor) 80 mg PO HS [facility] Stop: 05/28/17 21:01 Last Admin: 11/27/16 20:31 Dose: 80 mg Diphenhydramine HCl (Benadryl) 25 mg PO HS PRN PRN Reason: insomnia Stop: 05/28/17 15:20 Duloxetine HCl (Cymbalta) 30 mg PO BID [facility] Stop: 05/29/17 12:31 Last Admin: 11/28/16 09:08 Dose: 30 mg Heparin Sodium (Porcine) (Heparin) 8,400 unit 70 unit/kg (8400 unit) IVP Q6HR PRN PRN Reason: SEE COMMENTS Stop: 05/30/17 08:09 Heparin Sodium (Porcine) (Heparin) 4,200 unit 35 unit/kg (4200 unit) IVP Q6H PRN PRN Reason: SEE COMMENTS Stop: 05/30/17 08:09 Diltiazem HCl 125 mg/ Dextrose 125 mls @ 5 mls/hr IVC .Q24H [facility]; 5 MG/HR PRN Reason: Protocol Stop: 05/29/17 17:16 Last Titration: 11/28/16 09:30 Dose: 15 mg/hr, 15 mls/hr Heparin Sodium/Dextrose (Heparin 25,000 Unit/500 Ml D5w) 25,000 unit in 500 mls @ 33.768 mls/hr IVC .[id number] [facility]; 14 UNIT/KG/HR PRN Reason: Protocol Stop: 05/30/17 08:16 Last Admin: 11/28/16 09:37 Dose: 14 unit/kg/hr, 33.768 mls/hr Levothyroxine Sodium (Synthroid) 175 mcg PO 0630 [facility] Stop: 05/29/17 06:31 Last Admin: 11/28/16 05:08 Dose: 175 mcg Loperamide HCl (Imodium) 2 mg PO Q4HR PRN PRN Reason: Diarrhea Stop: 05/29/17 16:01 Last Admin: 11/28/16 09:08 Dose: 2 mg Lorazepam (Ativan) 1 mg IVP Q3HR PRN PRN Reason: Agitation Stop: 05/29/17 17:00 Last Admin: 11/27/16 17:50 Dose: 1 mg Metoprolol Succinate (Toprol Xl) 12.[address] [facility] Stop: 05/29/17 10:31 Last Admin: 11/28/16 09:07 Dose: 12.5 mg Metoprolol Tartrate (Lopressor) 5 mg IVP Q2HR PRN PRN Reason: pulse greater than 140 Stop: 05/30/17 00:28 Last Admin: 11/28/16 00:43 Dose: 5 mg Morphine Sulfate (Morphine Sulfate) 4 mg IVP Q3H PRN PRN Reason: Severe Pain (7-10) Stop: 05/28/17 15:24 Omeprazole (Prilosec) 40 mg PO DAILY@0630 [facility] Stop: 05/30/17 06:31 Last Admin: 11/28/16 05:08 Dose: 40 mg Ondansetron HCl (Zofran) 4 mg IVP Q6HR PRN; Protocol PRN Reason: Nausea And Vomiting Stop: 05/28/17 15:20 Ticagrelor (Brilinta) [address] [facility] Stop: 05/28/17 21:01 Last Admin: 11/28/16 09:08 Dose: 90 mg - Imaging and Cardiology Echo: report reviewed Cardiac cath: report reviewed - EKG Interpretation EKG results cardiology: other (24 hour tele AVG HR 110--A-Fib) Consult Discharge Plan - Plan Referrals: NO,PCP [Primary Care Provider] -
[2016-11-28] MEDS ORDERED: Magnesium Sulfate 2 GM in D5% in Water 100 ML IVPB ONE (11:19)
[2016-11-28] MEDS ORDERED: *HR* Rivaroxaban 10 MG TABLET PO SCH (17:00)
--- NOTE | 2016-11-28 18:37 | Electrocardiograph Report ---
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
[2016-11-28] MEDS: Metoprolol XL (24 HR) Succ 25 MG TAB.ER.24H PO SCH (20:08)
[2016-11-29] MEDS: *HR* Metoprolol 5 MG/5 ML VIAL IVP PRN ×2 (01:23→21:11)
[2016-11-29] MEDS ORDERED: 0.9 % Sodium Chloride 500 ML ONE (01:44)
[2016-11-29] MEDS: *HR* Ticagrelor 90 MG TABLET PO SCH (08:31)
[2016-11-29] MEDS: Diltiazem CD (24hr) 120 MG CAPSULE PO SCH (08:31)
[2016-11-29] MEDS: Metoprolol XL (24 HR) Succ 25 MG TAB.ER.24H PO SCH ×2 (08:31→21:42)
[2016-11-29] MEDS: Aspirin 81 MG TAB.CHEW PO SCH (08:31)
--- NOTE | 2016-11-29 09:45 | Cardiology Progress Note ---
Date of Encounter: 11/27/16 Time of Encounter: 09:43 Assessment and Plan (1) ST elevation myocardial infarction (STEMI) Current Visit: Yes Status: Acute S/P emergent LHC for inferior STEMI 11/26. Successful PTCA/MIGUEL in mid dominant circ--culprit for [place]. DAPT (initially ASA and Brilinta) uninterrupted x 1 year. Pt verbalizes understanding. Continue Statin. Added low dose BB. Given persistent dyspnea without explanation (negative CXR, now SR) will switch from Brilinta to Plavix. Stop Brilinta after tonight's dose. Start Plavix 75mg tomorrow AM. Echo EF 60%, mild LVH, mild diastolic dysfunction, normal RV structure and function, no significant valvular dysfunction. Right femoral access site healing well. No bleeding, hematoma or ecchysmosis noted. Unable to discharge given blood in stool this AM. Stopping Xarelto. Continue DAPT. Monitoring closely. Qualifiers: Involved coronary artery: other inferior wall coronary artery Qualified Code(s): I21.19 - ST elevation (STEMI) myocardial infarction involving other coronary artery of inferior wall (2) PAF (paroxysmal atrial fibrillation) Current Visit: Yes Status: Acute Brief episode of PAF s/p LHC in setting of acute [place]. Now with multiple episodes of recurrence--currently SR. On Toprol XL 12.5mg BID and Cardizem CD 120mg daily. CHADSVASC score is 2 (Age, CAD). Started Xarelto 20mg yesterday evening. Now with episode of bloody diarrhea this AM. Will stop Xarelto. STAT CBC pending. Continue to monitor closely after stopping Xarelto. Yesterday Mag 1.6--replaced. K 3.8. TSH 0.043. Decreased synthroid to 100mcg. Today's labs pending. Echo EF 60%, no significant valvular dysfunction. (3) Diarrhea Current Visit: Yes Status: Acute Reports had recent GI virus. Will check for C.Diff while inpt. Qualifiers: Diarrhea type: unspecified type Qualified Code(s): R19.7 - Diarrhea, unspecified (4) Hypothyroidism Current Visit: Yes Status: Chronic Previously hypothyroidism, but now hyperthyroidism. TSH 0.043--decrease synthroid dose to 100mcg. Will have pt follow-up with PCP as outpt. Qualifiers: Hypothyroidism type: unspecified Qualified Code(s): E03.9 - Hypothyroidism , unspecified (5) Blood in stool Current Visit: Yes Status: Acute Observed by RN this AM. Has received one dose of Xarelto yesterday evening. Will stop Xarelto. Continue DAPT for PCI 11/26. CBC pending. Continue to monitor closely. Discussion w patient/family: The assessment and plan as outlined above was discussed with the patient and/or family members who expressed understanding and agreement. All questions were answered. Thank you for involving us in the care of your patient. Please call with any questions. I will discuss all the above with Dr. Ruth and make changes as necessary. Subjective Principal diagnosis: STEMI Interval history: S/P STEMI and LHC 11/26. Successful PTCA/MIGUEL in mid dominant circ--culprit for [place]. Pt had brief episode of PAF after [place], since had multiple recurrent episodes of PAF, was started on Xarelto yesterday evening. He is now in SR. Reports episode of midsternal chest heaviness when rolling on his left side. Reports ongoing dyspnea. CXR showed low lung volumes, but no evidence of CHF or PNA. Paged shortly after leaving room--RN witnessed episode of bloody diarrhea. Labs pending. Objective Vital Signs, Last 4 Hours Temp Pulse Resp BP Pulse Ox 11/29/16 09:35 65 11/29/16 08:15 64 112/84 11/29/16 07:47 98.0 F 64 20 104/72 95 11/29/16 06:00 69 112/79 Vital Signs Temp Pulse Resp BP Pulse Ox 11/29/16 09:35 65 11/29/16 08:15 64 112/84 11/29/16 07:47 98.0 F 64 20 104/72 95 11/29/16 06:00 69 112/79 11/29/16 05:00 60 117/72 11/29/16 04:05 92 102/81 11/29/16 03:51 98.2 F 97 27 130/77 97 11/29/16 03:20 125 11/29/16 03:00 94 119/71 11/29/16 02:30 94 112/85 11/29/16 02:05 119 133/31 11/29/16 01:47 129 92/66 11/28/16 23:40 74 11/28/16 23:38 101.4 F H 79 18 111/85 95 11/28/16 20:15 69 11/28/16 20:01 98.5 F 65 20 121/82 91 L 11/28/16 18:00 79 22 96 11/28/16 17:00 77 20 127/89 97 11/28/16 15:00 74 22 126/96 98 11/28/16 14:00 69 16 102/79 97 11/28/16 12:00 89 20 97/60 96 11/28/16 11:15 98.0 F 11/28/16 10:00 96 22 93/73 98 Intake and Output 11/28/16 11/29/16 11/29/16 23:59 07:59 15:59 Intake Total 968.3 / 968.3 200 / 200 861.7 / 861.7 Output Total 100 / 100 500 / 500 0 / 0 Balance 868.3 / 868.3 -300 / -300 861.7 / 861.7 Intake: IV Fluids 248.3 / 248.3 161.7 / 161.7 0.9 % Sodium Chloride 500 129 / 129 ML As .ROUTE .STK-MED [facility] Rx#:[id number] Cardizem 125 MG In 36.3 / 36.3 32.7 / 32.7 Dextrose 5% 100 ML @ 5 MG /HR 5 mls/hr IVC .Q24H [facility] Rx#:[id number] Heparin 25,000 UNIT/500 212 / 212 ML D5W 25,000 unit In 500 ml @ 14 UNIT/KG/HR 33. 768 mls/hr IVC .[id number] [facility] Rx#:[id number] Oral 720 / 720 200 / 200 700 / 700 Output: Urine 100 / 100 0 / 0 Urine/Stool Mix 500 / 500 Other: Stool Size Small Moderate Stool Consistency liquid liquid Stool Characteristics Normal for Patient Stool Color Yellow Brown # Voids 1 # Bowel Movements 1 1 Weight 120.5 kg Patient Weight 11/29/16 23:59 Weight 120.5 kg General: Conversant, No Apparent Distress HEENT: Atraumatic, Normocephaly, Mucus Membranes Moist Neck: No JVD, Normal carotid pulses Cardiac: Reg Rate and Rhythm, Normal S1 and S2, No Murmur Lungs: Other (diminished) Neuro: Alert and responsive, No focal deficits noted Abdomen: Soft, Non-Tender Skin: No rashes noted on visualized skin Musculoskeletal: No Chest Wall Tenderness Extremities: No Clubbing, No Cyanosis, No Edema, Normal Pulses Results 11/28/16 08:41 11/28/16 08:41 - Imaging and Cardiology Chest Xray: report reviewed Echo: report reviewed Cardiac cath: report reviewed - EKG Interpretation EKG results cardiology: other (24 hour tele AVG HR 80, PAF.) Consult Discharge Plan - Plan Referrals: Brent Weaver Jr, MD [Partnered Physician] - (SENT WEB REQUEST ON 11-29-16 @ [phone] ) NO,PCP [Primary Care Provider] -
[2016-11-29 10:54] LABS: Basophils % 0.1 %; Hematocrit 47.4 % (37.5-50.1); Hemoglobin 16.1 g/dL (12.9-16.9); Immature Granulocytes % 0.5 % (0-4); Lymphocytes # 1.5 K/mcL (0.6-4.6); Lymphocytes % 13.9 %; Mean Corpuscular Volume 91.3 fL (83.0-100.0); Mean Platelet Volume 12.1 fL (9.4-12.4); Monocytes # 1.2 K/mcL (0.0-1.3); Monocytes % 11.6 %; Neutrophils # 7.7 K/mcL (1.6-8.9); Platelet Count 225 K/mcL (140-400); Red Blood Count 5.19 M/mcL (4.19-5.50); Red Cell Distribution Width 14.7 % (11.5-14.5); Segmented Neutrophils % 73.9 %
[2016-11-29 11:05] LABS: Calcium 8.3 mg/dL (8.6-10.8)
--- NOTE | 2016-11-29 12:13 | Event Note ---
Date of Encounter: 11/27/16 Time of Encounter: 12:11 - Cardiology Event Note C.Diff negative. Labs resulted. H&H stable. Now with MAEVE--creatinine was 1.35 yesterday, 2.15 today. Will start IV fluids, consult nephrology. Xarelto was stopped. Continue to monitor closely.
[2016-11-29] MEDS: 0.9 % Sodium Chloride 1,000 ML IVC SCH (13:08)
--- NOTE | 2016-11-29 14:38 | Nephrology Consult Note ---
Date of Encounter: 11/27/16 Time of Encounter: 12:00 Assessment and Plan (1) MAEVE (acute kidney injury) Current Visit: Yes Status: Acute Elevated SCr in the setting of recent STEMI with LHC (doubt contrast nephropathy as over 48hrs in presentation, diarrhea and Afib with hypotensive episodes. Agree with volume resuscitation given preserved EF at 60% Will obtain US of kidney Will check uric acid and CPK levels Will check urine for UA, sodium, creatinine and eosinophils Above nephrotoxins if possible Continue cardiac optimization per primary team No acute indication for BOX BL[employer] M[employer] at this time (2) PAF (paroxysmal atrial fibrillation) Current Visit: Yes Status: Acute (3) ST elevation myocardial infarction (STEMI) Current Visit: Yes Status: Acute Qualifiers: Involved coronary artery: other inferior wall coronary artery Qualified Code(s): I21.19 - ST elevation (STEMI) myocardial infarction involving other coronary artery of inferior wall (4) Acidosis Current Visit: Yes Status: Acute Bicarb noted low due to MAEVE, will repeat volume fiirst and if still low, will start supplements History of Present Illness - Reason for Consult Consult date: 11/29/16 Acute Kidney Injury Requesting physician: Abel Samayoa - History of Present Illness 70 y o female with PMH of HTN, hypothyroidism, Non hodgkin's lymphoma 6 years ago in remission and fibramyalgia admitted 11/27/15 with chest pain diagnosed with STEMI requiring urgent LHC the same day with intervention with stent placed. Stay complicated by persistent diarrhea from viral illness patient has had for several days (cdiff negative) and Afib with hypotension last night. Renal consulted for worsening SCr in the past 24hrs from 1.35, GFR 54 to 2.15, GFR 31. Patient denied any prior history of renal disease. No family history as well although his might be a patient of mine. No urinary sxs. No NSAIDs use recently Past Med Surg Social Fam HX - Past Medical History Medical history: fibromyalgia, GERD, thyroid disease Psychiatric history: no psych history - Past Surgical History Surgical History: orthopedic, other, sinus surgery - Social History Smoking Status: Former smoker Smokeless Tobacco Status: Yes (VAPES) Alcohol use: heavy Drug use: marijuana Medications and Allergies Duloxetine [Cymbalta] 30 mg PO BID 08/01/16 [History] Levothyroxine [Synthroid] 175 mcg PO 0630 08/01/16 [History] Omeprazole [PriLOSEC] 40 mg PO DAILY 08/01/16 [History] Allergies codeine Adverse Reaction (Severe, Verified 08/01/16 12:02) Abdominal Pain severe pain Review of Systems All Systems: reviewed and no additional remarkable complaints except as stated ( ten systems reviewed) Exam - Vital Signs Vital signs: Initial Vital Signs Temp Pulse Resp BP Pulse Ox 97.8 F 59 18 195/125 99 11/26/16 13:50 11/26/16 13:50 11/26/16 13:50 11/26/16 13:50 11/26/16 13:50 Vital Signs - Last 8 Hours Temp Pulse Resp BP Pulse Ox 11/29/16 13:21 58 11/29/16 12:00 58 11/29/16 11:26 98.2 F 59 18 101/68 93 11/29/16 09:35 65 11/29/16 08:15 64 112/84 11/29/16 07:47 98.0 F 64 20 104/72 95 Intake and Output 11/28/16 11/29/16 11/29/16 23:59 07:59 15:59 Intake Total 968.3 / 968.3 200 / 200 1221.7 / 1221.7 Output Total 100 / 100 500 / 500 0 / 0 Balance 868.3 / 868.3 -300 / -300 1221.7 / 1221.7 Intake: IV Fluids 248.3 / 248.3 161.7 / 161.7 0.9 % Sodium Chloride 500 129 / 129 ML As .ROUTE .STK-MED [facility] Rx#:[id number] Cardizem 125 MG In 36.3 / 36.3 32.7 / 32.7 Dextrose 5% 100 ML @ 5 MG /HR 5 mls/hr IVC .Q24H [facility] Rx#:[id number] Heparin 25,000 UNIT/500 212 / 212 ML D5W 25,000 unit In 500 ml @ 14 UNIT/KG/HR 33. 768 mls/hr IVC .[id number] [facility] Rx#:[id number] Oral 720 / 720 200 / 200 1060 / 1060 Output: Urine 100 / 100 0 / 0 Urine/Stool Mix 500 / 500 Other: Meal Lunch Percent of Meal Consumed 0% Stool Size Small Moderate Small Stool Consistency liquid liquid liquid Stool Characteristics Normal for Patient Stool Color Yellow Brown Blood Tinged # Voids 1 1 # Bowel Movements 1 1 1 Weight 120.5 kg Patient Weight 11/29/16 23:59 Weight 120.5 kg - General Appearance General appearance: well-developed, well-nourished (NAD) EENT: ATNC, mucous membranes dry Neck: no JVD, supple Respiratory: clear (ant bilat) Cardiology: no edema, regular rate, regular rhythm, normal S1, normal S2 Gastrointestinal: no tenderness, no guarding Integumentary: warm and dry Neurologic: no focal deficit Musculoskeletal: no deformities Psychiatric: mood/affect appropriate, cooperative Results - Lab Results 11/29/16 10:44 11/29/16 10:44 Most recent lab results Calcium 8.3 mg/dL (8.6-10.8) L 11/29/16 10:44 Magnesium 1.6 mg/dL (1.6-2.6) 11/28/16 08:41 Consult Discharge Plan - Plan Referrals: Brent Weaver Jr, MD [Partnered Physician] - (SENT WEB REQUEST ON 11-29-16 @ [phone] ) NO,PCP [Primary Care Provider] -
[2016-11-29 17:31] LABS: Bilirubin,Urine Small (Negative); Blood,Urine Negative (Negative); Clarity,Urine Clear (Clear); Color,Urine Yellow (Yellow); Glucose,Urine (UA) Normal (Normal); Ketones,Urine Negative (Negative); Leukocyte Esterase,Urine Negative (Negative); Nitrite,Urine Negative (Negative); PH,Urine 5.5 pH Units (5.0-8.0); Protein,Urine 30 mg/dL (Neg-Trace); Specific Gravity,Urine 1.027 (1.010-1.025); Urobilinogen,Urine Normal (Normal)
[2016-11-29 17:34] LABS: Squamous Epithelial Cell,Urine Many per lpf (None-Few); WBC,Urine 0-3 per hpf (0-3)
[2016-11-29 17:53] LABS: Hyaline Casts,Urine Many per lpf (None-Few)
[2016-11-29 17:54] LABS: Bacteria,Urine Few per hpf (None-Few)
[2016-11-29 17:57] LABS: Creatinine,Urine 361 mg/dL
[2016-11-29 19:11] LABS: Sodium, Urine < 20.0 mEq/L
[2016-11-29] MEDS ORDERED: *HR* Ticagrelor 90 MG TABLET PO SCH (21:00)
[2016-11-30] MEDS: *HR* Metoprolol 5 MG/5 ML VIAL IVP PRN (03:53)
[2016-11-30 09:04] LABS: Hemoglobin 16.3 g/dL (12.9-16.9); Mean Corpuscular Hemoglobin 30.5 pg (28.0-33.3); Mean Corpuscular Volume 89.7 fL (83.0-100.0); Mean Platelet Volume 12.1 fL (9.4-12.4); Platelet Count 246 K/mcL (140-400); Red Blood Count 5.35 M/mcL (4.19-5.50); Red Cell Distribution Width 14.6 % (11.5-14.5)
--- NOTE | 2016-11-30 09:09 | Electrocardiograph Report ---
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
[2016-11-30 09:16] LABS: Calcium 8.5 mg/dL (8.6-10.8)
[2016-11-30 09:17] LABS: Potassium 4.5 mEq/L (3.5-4.5)
[2016-11-30] MEDS: Aspirin 81 MG TAB.CHEW PO SCH (09:33)
[2016-11-30] MEDS: Metoprolol XL (24 HR) Succ 25 MG TAB.ER.24H PO SCH ×2 (09:33→20:34)
[2016-11-30] MEDS: Diltiazem CD (24hr) 120 MG CAPSULE PO SCH (09:33)
[2016-11-30] MEDS: 0.9 % Sodium Chloride 1,000 ML IVC SCH (09:37)
[2016-11-30] MEDS ORDERED: *HR* Digoxin 0.5 MG/2 ML AMPUL IVP ONE ×2 (11:55→20:00)
--- NOTE | 2016-11-30 12:20 | Nephrology Progress Note ---
Date of Encounter: 11/30/16 Time of Encounter: 11:55 - Assessment and Plan (1) MAEVE (acute kidney injury) Current Visit: Yes Status: Acute SCr improving at 1.9, GFR 35, will continue VF if possible but add bicarb. Etiology of MAEVE appears to be pre-renal (urine concerntrated with high sp. gravity and sodium<20) Obtain US of kidney Encouraged po fluids as well Continue cardiac optimization per primary team (2) PAF (paroxysmal atrial fibrillation) Current Visit: Yes Status: Acute Per cardiology (3) ST elevation myocardial infarction (STEMI) Current Visit: Yes Status: Acute Per cardiology. s/p LHC with stent on anti-platelet therapy Qualifiers: Involved coronary artery: other inferior wall coronary artery Qualified Code(s): I21.19 - ST elevation (STEMI) myocardial infarction involving other coronary artery of inferior wall (4) Acidosis Current Visit: Yes Status: Acute Bicarbonate level worsening likely due to a combination of diarrhea and MAEVE, will change IVF to add bicarb Subjective Principal diagnosis: STEMI Interval history: Pt seen and examined with and nurse at bedside. Had SOB earlier. Back in Afib. Feels bloated. Objective - Vital Signs Vital signs: Vital Signs Temp Pulse Resp BP Pulse Ox 11/30/16 11:45 97.6 F 109 18 96/73 96 11/30/16 09:21 114 22 92/78 96 11/30/16 04:34 102 23 97 11/30/16 03:55 99.5 F 125 23 116/66 97 11/30/16 00:40 104 20 96 11/30/16 00:00 20 96 11/29/16 23:53 99.3 F 94 23 93/75 95 11/29/16 21:24 102 16 93 11/29/16 19:51 98.8 F 58 16 114/67 93 11/29/16 17:00 98.0 F 60 18 106/75 93 11/29/16 13:21 58 Intake and Output 11/29/16 11/30/16 11/30/16 23:59 07:59 15:59 Intake Total 948 / 948 0 / 0 820 / 820 Output Total 100 / 100 310 / 310 Balance 848 / 848 -310 / -310 820 / 820 Intake: IV Fluids 228 / 228 700 / 700 0.9 % Sodium Chloride 1, 228 / 228 700 / 700 000 ML @ 50 mls/hr IVC . Q20H [facility] Rx#:[id number] Oral 720 / 720 0 / 0 120 / 120 Output: Urine 100 / 100 Urine/Stool Mix 310 / 310 Other: Meal Dinner Breakfast Percent of Meal Consumed 50% 75% Stool Color Brown Wolfgang Colored Weight 120.6 kg Patient Weight 11/30/16 23:59 Weight 120.6 kg - General Appearance General appearance: Present: well-developed, well-nourished (NAD) EENT: Present: ATNC, mucous membranes dry Neck: Present: no JVD, supple Respiratory: Present: clear (ant bilat) Cardiology: Present: no edema, irregular rhythm, normal S1, normal S2 Gastrointestinal: Present: no guarding, distended (mildly) Integumentary: Present: warm and dry Neurologic: Present: no focal deficit Musculoskeletal: Present: no deformities Psychiatric: Present: mood/affect appropriate - Lab 11/30/16 08:54 11/30/16 08:54 Most recent lab results Calcium 8.5 mg/dL (8.6-10.8) L 11/30/16 08:54 Magnesium 1.6 mg/dL (1.6-2.6) 11/28/16 08:41 Urine Creatinine 361 mg/dL 11/29/16 16:35 Urine Sodium < 20.0 mEq/L 11/29/16 16:35 Consult Discharge Plan - Plan Referrals: Brent Weaver Jr, MD [Partnered Physician] - (SENT WEB REQUEST ON 11-29-16 @ 1825 ) NO,PCP [Primary Care Provider] -
--- NOTE | 2016-11-30 12:20 | Cardiology Progress Note ---
Date of Encounter: 11/30/16 Time of Encounter: 09:30 Assessment and Plan (1) ST elevation myocardial infarction (STEMI) Current Visit: Yes Status: Acute Per cardiology: -S/P emergent LHC for inferior STEMI 11/26. Successful PTCA/MIGUEL in mid dominant circ--culprit for [place]. -DAPT (initially ASA and Brilinta) uninterrupted x 1 year. Pt verbalizes understanding. Continue Statin. Added low dose BB. -Given persistent dyspnea without explanation (negative CXR, now SR) will switch from Brilinta to Plavix. -Brilinta stopped yesterday and plavix started today. -Echo EF 60%, mild LVH, mild diastolic dysfunction, normal RV structure and function, no significant valvular dysfunction. -Right femoral access site healing well. No bleeding, hematoma or ecchysmosis noted. -Denies chest pain. -Will continue to monitor. (AVERY) Qualifiers: Involved coronary artery: other inferior wall coronary artery Qualified Code(s): I21.19 - ST elevation (STEMI) myocardial infarction involving other coronary artery of inferior wall (2) MAEVE (acute kidney injury) Current Visit: Yes Status: Acute Per cardiololgy: -Creatinine improving today, 1.9. -Management per nephrology. (AVERY) (3) Diarrhea Current Visit: Yes Status: Acute Per cardiololgy: -Reports had recent GI virus. -Reports several episodes of diarhhea yesterday. -States no diarrhea today at time of assessment. -Mg = 2.5. (AVERY) Qualifiers: Diarrhea type: unspecified type Qualified Code(s): R19.7 - Diarrhea, unspecified (4) PAF (paroxysmal atrial fibrillation) Current Visit: Yes Status: Acute Per cardiology: -Had atrial fibrillation after cath. -Patient now atrial fibrillation with RVR, HR 112. -Chadsvasc 2. Was satrted on xarelto, however had bloody diarrhea and xarelto was stopped. -On beta titi, cardizem, and asa. -Suspect [place] and diarrhea may be contributing to atrial fibrillation. -Per discussion with , will give digoxin IV 0.5mg now then 0.25mg IV in 8 hours. Will hold off on maintenance digoxin at this point due to renal function. -will check Mg-- 2.5 today -Will continue to monitor. (AVERY) (5) Blood in stool Current Visit: Yes Status: Acute Per cardiology: -Per patient had multiple episodes of bloody diarrhea yesterday. -Hemoglobin stable. Today 16.3. Yesterday 16.1. -Denies bloody stools today. -Will continue to monitor. (AVERY) (6) Hypothyroidism Current Visit: Yes Status: Chronic Per cardiology: -Previously hypothyroidism, but now hyperthyroidism. -TSH 0.043. Synthroid dose was deccreased to 100mcg. - Will have pt follow-up with PCP as outpt.(AVERY) Qualifiers: Hypothyroidism type: unspecified Qualified Code(s): E03.9 - Hypothyroidism , unspecified (7) Shortness of breath Current Visit: Yes Status: Acute Per cardiology: -Pateint reports shortness of breath. -On O2 at 2lpm nasal cannula. -SpO2 94-95%. -Chest x-ray today with no acute process. -Previously on brilinta, was switch to plavix today for shortness of breath. -May be related to atrial fibrillation. -Will continue to monitor. (AVERY) Discussion w patient/family: The assessment and plan as outlined above was discussed with the patient who expressed understanding and agreement. All questions were answered. Thank you for involving us in the care of your patient. Please call with any questions. Pateint seen and examined with ES Chirinos Discussed and reviewed with . Subjective Principal diagnosis: STEMI Interval history: S/P STEMI and [facility] 11/26. Successful PTCA/MIGUEL in mid dominant circ--culprit for [place]. Pt had brief episode of PAF after [place], since had multiple recurrent episodes of PAF, was started on Xarelto. Patient had several reported episodes of bloody diarhhea and xarelto was stopped yesterday. Reports ongoing dyspnea. CXR showed low lung volumes, but no evidence of CHF or PNA. Patient states increased shortness of breath this morning. Patient now back in atrial fibrillation with RVR. Patient denies chest pain. (AVERY) Objective Vital Signs, Last 4 Hours Temp Pulse Resp BP Pulse Ox 11/30/16 11:45 97.6 F 109 18 96/73 96 11/30/16 09:21 114 22 92/78 96 General: Conversant, No Apparent Distress, Other (No conversational dyspnea noted. ) HEENT: Atraumatic, Normocephaly, Mucus Membranes Moist Neck: No JVD, Normal carotid pulses Cardiac: Other (Irregularly, irregular. Tachycardic. ) Lungs: Normal Breath Sounds, No Wheeze, Rales, Rhonchi Neuro: Alert and responsive, No focal deficits noted Abdomen: Soft, Non-Tender Skin: No rashes noted on visualized skin Musculoskeletal: No Chest Wall Tenderness Extremities: No Clubbing, No Cyanosis, No Edema, Normal Pulses Results 11/30/16 08:54 11/30/16 08:54 Lab Results Impressions Chest X-Ray 11/30/16 08:56 IMPRESSION: No acute cardiopulmonary disease. D/ / 11/30/2016 12:24:31 Francisco J Van MD / earnold Interpreting Provider: Francisco J Van MD Active Medications Acetaminophen (Tylenol) 500 mg PO Q6HR PRN PRN Reason: Mild Pain Stop: 05/28/17 15:24 Last Admin: 11/28/16 23:42 Dose: 500 mg Aspirin (Aspirin) 81 mg PO DAILY [facility] Stop: 05/29/17 09:01 Last Admin: 11/30/16 09:33 Dose: 81 mg Atorvastatin Calcium (Lipitor) 80 mg PO HS [facility] Stop: 05/28/17 21:01 Last Admin: 11/29/16 21:42 Dose: 80 mg Clopidogrel Bisulfate (Plavix) 75 mg PO DAILY [facility] Stop: 06/01/17 09:01 Digoxin (Lanoxin) 0.25 mg IVP ONCE ONE Stop: 11/30/16 20:01 Diltiazem HCl (Cardizem Cd) 120 mg PO DAILY [facility] Stop: 05/31/17 09:01 Last Admin: 11/30/16 09:33 Dose: 120 mg Diphenhydramine HCl (Benadryl) 25 mg PO HS PRN PRN Reason: insomnia Stop: 05/28/17 15:20 Duloxetine HCl (Cymbalta) 30 mg PO BID [facility] Stop: 05/29/17 12:31 Last Admin: 11/30/16 09:33 Dose: 30 mg Sodium Bicarbonate 75 meq/ (Sodium Chloride) 1,075 mls @ 50 mls/hr IVC .[id number] [facility] Stop: 06/01/17 12:31 Levothyroxine Sodium (Synthroid) 100 mcg PO 0630 [facility] Stop: 06/01/17 06:31 Last Admin: 11/30/16 06:06 Dose: 100 mcg Loperamide HCl (Imodium) 2 mg PO Q4HR PRN PRN Reason: Diarrhea Stop: 05/29/17 16:01 Last Admin: 11/29/16 21:44 Dose: 2 mg Lorazepam (Ativan) 1 mg IVP Q3HR PRN PRN Reason: Agitation Stop: 05/29/17 17:00 Last Admin: 11/27/16 17:50 Dose: 1 mg Metoprolol Succinate (Toprol Xl) 12.5 mg PO BID [facility] Stop: 05/30/17 21:01 Last Admin: 11/30/16 09:33 Dose: 12.5 mg Metoprolol Tartrate (Lopressor) 5 mg IVP Q2HR PRN PRN Reason: pulse greater than 140 Stop: 05/30/17 00:28 Last Admin: 11/30/16 03:53 Dose: 5 mg Morphine Sulfate (Morphine Sulfate) 4 mg IVP Q3H PRN PRN Reason: Severe Pain (7-10) Stop: 05/28/17 15:24 Omeprazole (Prilosec) 40 mg PO DAILY@0630 [facility] Stop: 05/30/17 06:31 Last Admin: 11/30/16 06:06 Dose: 40 mg Ondansetron HCl (Zofran) 4 mg IVP Q6HR PRN; Protocol PRN Reason: Nausea And Vomiting Stop: 05/28/17 15:20 Laboratory Tests 11/26/16 11/26/16 11/28/16 13:53 13:53 08:41 WBC 13.5 H Hgb Potassium Creatinine 1.42 H Est GFR (Non-Af Amer) 49 L TSH 0.043 L 11/29/16 11/29/16 11/30/16 10:44 10:44 08:54 WBC 10.5 Hgb 16.1 Potassium 4.5 Creatinine 2.15 H D 1.90 H Est GFR (Non-Af Amer) 31 L 35 L TSH 11/30/16 08:54 WBC 12.7 H Hgb 16.3 Potassium Creatinine Est GFR (Non-Af Amer) TSH - Imaging and Cardiology Chest Xray: report reviewed Echo: report reviewed Cardiac cath: report reviewed - EKG Interpretation EKG results cardiology: other (Telemetry reviewed with average HR past 12 hours , 89. Occasional PVCs noted. Patient is currently atrial fibrillation with HR 112. Per review of tele it appears patient went into atrial fibrillation in the middle of the night.) Consult Discharge Plan - Plan Referrals: Brent Weaver Jr, MD [Partnered Physician] - (SENT WEB REQUEST ON 11-29-16 @ [phone] ) NO,PCP [Primary Care Provider] -
[2016-11-30 12:51] LABS: Magnesium 2.5 mg/dL (1.6-2.6)
[2016-11-30] MEDS: Sodium Bicarbonate 75 MEQ in 0.45 % Sodium Chloride 1,000 ML IVC SCH (15:23)
[2016-11-30] MEDS: *HR* LORazepam 2 MG/ML VIAL IVP PRN (23:24)
[2016-12-01 03:40] LABS: Basophils % 0.2 %; Eosinophils # 0.1 K/mcL (0.0-0.6); Eosinophils % 1.3 %; Hematocrit 43.9 % (37.5-50.1); Hemoglobin 15.1 g/dL (12.9-16.9); Immature Granulocytes % 0.3 % (0-4); Lymphocytes # 2.4 K/mcL (0.6-4.6); Lymphocytes % 23.3 %; Mean Corpuscular HGB Conc 34.4 g/dL (31.6-35.5); Mean Corpuscular Hemoglobin 30.7 pg (28.0-33.3); Mean Corpuscular Volume 89.2 fL (83.0-100.0); Mean Platelet Volume 12.1 fL (9.4-12.4); Monocytes # 1.2 K/mcL (0.0-1.3); Monocytes % 12.2 %; Neutrophils # 6.4 K/mcL (1.6-8.9); Platelet Count 237 K/mcL (140-400); Red Blood Count 4.92 M/mcL (4.19-5.50); Red Cell Distribution Width 14.5 % (11.5-14.5); Segmented Neutrophils % 62.7 %
[2016-12-01 03:58] LABS: BUN/Creatinine Ratio 21 (6-26); Blood Urea Nitrogen 30 mg/dL (8-26); Calcium 8.4 mg/dL (8.6-10.8); Carbon Dioxide 15 mEq/L (19-29); Chloride 111 mEq/L (98-109); Glucose 86 mg/dL (70-99); Osmolality,Calculated 289 (280-300); Potassium 3.8 mEq/L (3.5-4.5); Sodium 137 mEq/L (136-145); eGFR For African Americans > 60 (> 60); eGFR For Non-African Americans 50 (> 60)
[2016-12-01 04:54] LABS: Magnesium 1.8 mg/dL (1.6-2.6)
[2016-12-01] MEDS: Aspirin 81 MG TAB.CHEW PO SCH (08:59)
[2016-12-01] MEDS: Metoprolol XL (24 HR) Succ 25 MG TAB.ER.24H PO SCH ×2 (08:59→23:10)
[2016-12-01] MEDS: Diltiazem CD (24hr) 120 MG CAPSULE PO SCH (09:00)
[2016-12-01] MEDS ORDERED: *HR* Digoxin 0.125 MG TABLET PO SCH (09:15)
[2016-12-01] MEDS ORDERED: Metoprolol XL (24 HR) Succ 25 MG TAB.ER.24H PO ONE (09:30)
--- NOTE | 2016-12-01 09:39 | Cardiology Progress Note ---
Date of Encounter: 12/01/16 Time of Encounter: 09:00 Assessment and Plan (1) ST elevation myocardial infarction (STEMI) Current Visit: Yes Status: Acute Per cardiology: -S/P emergent LHC for inferior STEMI 11/26. Successful PTCA/MIGUEL in mid dominant circ, culprit for OK. -DAPT (initially ASA and Brilinta) uninterrupted x 1 year. Pt verbalizes understanding. Continue Statin. Added low dose BB. -Given persistent dyspnea without explanation (negative CXR, now SR) will switch from Brilinta to Plavix. -On plavix and states shortness of breath is much better. -Echo EF 60%, mild LVH, mild diastolic dysfunction, normal RV structure and function, no significant valvular dysfunction. -Right femoral access site healing well. No bleeding, hematoma or ecchysmosis noted. -Denies chest pain. -Will continue to monitor. (AVERY) Qualifiers: Involved coronary artery: other inferior wall coronary artery Qualified Code(s): I21.19 - ST elevation (STEMI) myocardial infarction involving other coronary artery of inferior wall (2) MAEVE (acute kidney injury) Current Visit: Yes Status: Acute Per cardiololgy: -Creatinine improving today, 1.41. -Will re-check BMP in am. -Management per nephrology. (AVERY) (3) Diarrhea Current Visit: Yes Status: Acute Per cardiololgy: -Reports had recent GI virus. -Reports several episodes of diarhhea yesterday. -States no diarrhea today at time of assessment. -Mg = 2.5. (AVERY) Qualifiers: Diarrhea type: unspecified type Qualified Code(s): R19.7 - Diarrhea, unspecified (4) PAF (paroxysmal atrial fibrillation) Current Visit: Yes Status: Acute Per cardiology: -Had atrial fibrillation after cath. -Patient now atrial fibrillation, HR 103. -Chadsvasc 2. Was started on xarelto, however had bloody diarrhea and xarelto was stopped. -On beta titi, cardizem, and asa. -Suspect OK and diarrhea may be contributing to atrial fibrillation. -Per discussion with , will start digoxing 0.125mg po every other day due to renal function. Will give first dose today. -will increase toprol to 25mg po BID-- SBP 100's - 110's, will monitor closely. Vocera received of notification of conversion to SR around 1230pm. -Will continue to monitor. (AVERY) (5) Blood in stool Current Visit: Yes Status: Acute Per cardiology: -Per patient had multiple episodes of bloody diarrhea on 11/29/16. -Hemoglobin stable. Today 15.1. -Denies bloody stools today. -Will continue to monitor. (AVERY) (6) Hypothyroidism Current Visit: Yes Status: Chronic Per cardiology: -Previously hypothyroidism, but now hyperthyroidism. -TSH 0.043. Synthroid dose was deccreased to 100mcg. - Will have pt follow-up with PCP as outpt.(AVERY) Qualifiers: Hypothyroidism type: unspecified Qualified Code(s): E03.9 - Hypothyroidism , unspecified (7) Shortness of breath Current Visit: Yes Status: Acute Per cardiology: -Pateint reports shortness of breath, the past several days. -On room air today. -SpO2 96%. -Chest x-ray with no acute process. -Previously on brilinta, was switch to plavix for shortness of breath. -Denies current shortness of breath. -Will continue to monitor. (AVERY) Discussion w patient/family: The assessment and plan as outlined above was discussed with the patient and family who expressed understanding and agreement. All questions were answered. Thank you for involving us in the care of your patient. Please call with any questions. Pateint seen and examined with ES Chirinos Discussed and reviewed with . Subjective Principal diagnosis: STEMI Interval history: S/P STEMI and C 11/26. Successful PTCA/MIGUEL in mid dominant circ--culprit for OK. Pt had brief episode of PAF after OK, since had multiple recurrent episodes of PAF, was started on Xarelto. Patient had several reported episodes of bloody diarhhea and xarelto was stopped. Reports ongoing dyspnea. CXR showed low lung volumes, but no evidence of CHF or PNA. Repeat chest x-ray with no acute process. Patient states no shortness of breath today. Creatinine imrpoving. Denies chest pain. Patient states overall he feels much better today. (AVERY) Objective Vital Signs, Last 4 Hours Temp Pulse Resp BP Pulse Ox 12/01/16 07:19 98.2 F 124 16 113/79 99 General: Conversant, No Apparent Distress HEENT: Atraumatic, Normocephaly, Mucus Membranes Moist Neck: No JVD, Normal carotid pulses Cardiac: No Murmur, Other (Irregularly, irregular) Lungs: Normal Breath Sounds, No Wheeze, Rales, Rhonchi Neuro: Alert and responsive, No focal deficits noted Abdomen: Soft, Non-Tender Skin: No rashes noted on visualized skin Musculoskeletal: No Chest Wall Tenderness Extremities: No Clubbing, No Cyanosis, No Edema, Normal Pulses Results 12/01/16 03:16 12/01/16 03:16 Lab Results Impressions Chest X-Ray 11/30/16 08:56 IMPRESSION: No acute cardiopulmonary disease. D/ / 11/30/2016 12:24:31 Francisco J Van MD / kathi Interpreting Provider: Francisco J Van MD Retroperitoneum Ultrasound 11/30/16 14:00 IMPRESSION: 1. No evidence of hydronephrosis. D/ / Neftali Amaro MD / Neftali Amaro MD Interpreting Provider: Neftali Amaro MD Active Medications Acetaminophen (Tylenol) 500 mg PO Q6HR PRN PRN Reason: Mild Pain Stop: 05/28/17 15:24 Last Admin: 11/28/16 23:42 Dose: 500 mg Aspirin (Aspirin) 81 mg PO DAILY FLETCHER Stop: 05/29/17 09:01 Last Admin: 12/01/16 08:59 Dose: 81 mg Atorvastatin Calcium (Lipitor) 80 mg PO HS FLETCHER Stop: 05/28/17 21:01 Last Admin: 11/30/16 20:35 Dose: 80 mg Clopidogrel Bisulfate (Plavix) 75 mg PO DAILY FLETCHER Stop: 06/01/17 14:46 Last Admin: 12/01/16 09:00 Dose: 75 mg Digoxin (Lanoxin) 0.125 mg PO QOD FLETCHER Stop: 06/02/17 09:16 Diltiazem HCl (Cardizem Cd) 120 mg PO DAILY FLETCHER Stop: 05/31/17 09:01 Last Admin: 12/01/16 09:00 Dose: 120 mg Diphenhydramine HCl (Benadryl) 25 mg PO HS PRN PRN Reason: insomnia Stop: 05/28/17 15:20 Duloxetine HCl (Cymbalta) 30 mg PO BID [facility] Stop: 05/29/17 12:31 Last Admin: 12/01/16 09:00 Dose: 30 mg Sodium Bicarbonate 75 meq/ (Sodium Chloride) 1,075 mls @ 50 mls/hr IVC .[id number] [facility] Stop: 06/01/17 12:31 Last Admin: 11/30/16 15:23 Dose: 50 mls/hr Levothyroxine Sodium (Synthroid) 100 mcg PO 0630 [facility] Stop: 06/01/17 06:31 Last Admin: 12/01/16 06:06 Dose: 100 mcg Loperamide HCl (Imodium) 2 mg PO Q4HR PRN PRN Reason: Diarrhea Stop: 05/29/17 16:01 Last Admin: 12/01/16 01:49 Dose: 2 mg Lorazepam (Ativan) 1 mg IVP Q3HR PRN PRN Reason: Agitation Stop: 05/29/17 17:00 Last Admin: 11/30/16 23:24 Dose: 1 mg Metoprolol Succinate (Toprol Xl) 25 mg PO BID [facility] Stop: 05/30/17 21:01 Morphine Sulfate (Morphine Sulfate) 4 mg IVP Q3H PRN PRN Reason: Severe Pain (7-10) Stop: 05/28/17 15:24 Omeprazole (Prilosec) 40 mg PO DAILY@0630 [facility] Stop: 05/30/17 06:31 Last Admin: 12/01/16 06:06 Dose: 40 mg Ondansetron HCl (Zofran) 4 mg IVP Q6HR PRN; Protocol PRN Reason: Nausea And Vomiting Stop: 05/28/17 15:20 Laboratory Tests 11/27/16 11/28/16 11/29/16 03:26 08:41 10:44 Hgb Hct Creatinine 1.14 1.35 H 2.15 H D 11/30/16 12/01/16 12/01/16 08:54 03:16 03:16 Hgb 15.1 Hct 43.9 Creatinine 1.90 H 1.41 H - Imaging and Cardiology Chest Xray: report reviewed Echo: report reviewed Cardiac cath: report reviewed - EKG Interpretation EKG results cardiology: other (Telemetry reviewed with average HR previous 12 hours noted to be 98, atrial fibrillation. Longest pause 2.2 seconds. Rare PVCs noted.) Consult Discharge Plan - Plan Instructions: Myocardial Infarction (DC), Atrial Fibrillation (DC), Left Heart Catheterization (DC), Coronary Intravascular Stent Placement (DC), Hypothyroidism (DC) Referrals: Brent Weaver Jr, MD [Primary Care Provider] - (SENT WEB REQUEST ON 11-29-16 @ [phone]) NO,PCP [Non-Partnered Physician] -
[2016-12-01] MEDS: *HR* LORazepam 2 MG/ML VIAL IVP PRN (12:35)
--- NOTE | 2016-12-01 15:55 | Nephrology Progress Note ---
Date of Encounter: 12/01/16 Time of Encounter: 15:00 - Assessment and Plan (1) MAEVE (acute kidney injury) Status: Resolved SCr improved at 1.41, GFR 50 and likely at baseline which is great. Can discharge soon from a renal standpoint with repeat BMP in a wek and followup with either pcp and myself Continue IVF for one more liter and then stop US of kidney reviewed Encouraged po fluids as well Continue cardiac optimization per primary team (2) PAF (paroxysmal atrial fibrillation) Status: Acute Per cardiology (3) ST elevation myocardial infarction (STEMI) Status: Acute Per cardiology. s/p LHC with stent on anti-platelet therapy Qualifiers: Involved coronary artery: other inferior wall coronary artery Qualified Code(s): I21.19 - ST elevation (STEMI) myocardial infarction involving other coronary artery of inferior wall (4) Acidosis Status: Acute Bicarbonate level improved from 12 to 15 with bicarb gtt, will continue for one more liter and then stop Subjective Principal diagnosis: STEMI Interval history: Pt seen and examined with and nurse at bedside. Feels better and eager to go home Objective - Vital Signs Vital signs: Vital Signs Temp Pulse Resp BP Pulse Ox 12/01/16 15:27 59 18 99/64 96 12/01/16 15:16 98.2 F 55 18 96/77 99 12/01/16 12:53 59 95 12/01/16 11:43 98.0 F 90 18 97/74 96 12/01/16 11:01 93 93/66 95 12/01/16 07:19 98.2 F 124 16 113/79 99 12/01/16 04:30 105 15 97 12/01/16 02:52 98.4 F 131 15 108/84 97 12/01/16 00:18 97.4 F L 133 15 111/77 95 11/30/16 23:25 116 15 95 11/30/16 20:59 97.4 F L 87 17 96 11/30/16 19:20 97.4 F L 95 17 101/76 96 Intake and Output 11/30/16 12/01/16 12/01/16 23:59 07:59 15:59 Intake Total 120 / 120 0 / 0 700 / 700 Output Total 400 / 400 275 / 275 Balance 120 / 120 -400 / -400 425 / 425 Intake: Oral 120 / 120 0 / 0 700 / 700 Output: Urine 300 / 300 275 / 275 Stool 100 / 100 Other: Meal Dinner Lunch Percent of Meal Consumed 90% 90% Stool Size Large Stool Consistency liquid loose liquid Stool Color Brown Yellow Yellow Wolfgang Colored # Bowel Movements 2 # Bowel Movement Diapers 2 Weight 120.8 kg Patient Weight 12/01/16 23:59 Weight 120.8 kg - General Appearance General appearance: Present: well-developed, well-nourished EENT: Present: ATNC, mucous membranes moist Neck: Present: no JVD, supple Respiratory: Present: clear Cardiology: Present: no edema, normal S1, normal S2 Gastrointestinal: Present: no tenderness, no guarding Integumentary: Present: warm and dry Neurologic: Present: no focal deficit Musculoskeletal: Present: no deformities Psychiatric: Present: mood/affect appropriate, cooperative - Lab 12/01/16 03:16 12/02/16 03:19 Most recent lab results Calcium 8.4 mg/dL (8.6-10.8) L 12/01/16 03:16 Magnesium 1.8 mg/dL (1.6-2.6) 12/01/16 03:16 Urine Creatinine 361 mg/dL 11/29/16 16:35 Urine Sodium < 20.0 mEq/L 11/29/16 16:35 Consult Discharge Plan - Plan Instructions: Metoprolol (By mouth), Diltiazem (By mouth), Digoxin (By mouth), Levothyroxine (By mouth), Nitroglycerin, Rapid Release (By mouth), Atorvastatin (By mouth), Clopidogrel (By mouth), Myocardial Infarction (DC), Atrial Fibrillation (DC), Left Heart Catheterization (DC), Coronary Intravascular Stent Placement (DC), Hypothyroidism (DC) Additional Instructions: RISK FACTORS: STOP SMOKING: If you smoke, STOP. Smoking or tobacco use significantly increases your risk of heart disease because nicotine causes the arteries to narrow or constrict. It also causes fats to stick to the artery. Your chances of having a heart attack are greatly increased if you continue to smoke. For more information, call the education line for smoking cessation 1-814-XFNUYOB EAT A LOW FAT/CHOLESTEROL/SODIUM DIET: This diet may help reduce your chances of having a heart attack. LIFTING: Avoid lifting anything more than 10 pounds for 5-7 days Prior to straining, laughing, sneezing and/or coughing, apply manual pressure directly over insertion site. ACTIVITY: You may walk or climb stairs as tolerated You can resume sexual activity as tolerated In general, you are encouraged to engage in a minimum of 30 minutes or more of moderate intensity physical activity, such as brisk walking, daily or at least 3 -4 times weekly BATHING Do not submerge the site into water (bath tub, hot tub, swimming pool) for 1 week. This can be a source for infection into the blood stream. You may shower after 24 hours SITE CARE: After 24 hours, you may remove the dressing and leave the site open to air. Keep the site clean and dry. Clean gently and pat dry. You can expect bruising and tenderness that gradually resolve within a week or two. Return to work as instructed per your physician Resume driving as instructed per physician Keep all scheduled follow up appointments Resume medications as instructed IMPORTANT: If prescribed a Platelet Aggregation Inhibitor such as, Plavix, Brilinta or Effient: Duration of therapy is minimum one year These medications are often used in combination with Aspirin in prevention of future heart attacks Never discontinue unless consult with your Reception Interviewer STROKE (CVA) Risk factors for a stroke are: Age, cigarette smoking, diabetes, excessive alcohol consumption, family history, high blood pressure, overweight, physical inactivity, prior stroke, heart attack, diagnosis of carotid artery stenosis or other artery disease. Warning signs: Sudden numbness or weakness of the face, arm or leg; especially on one side of the body, sudden confusion, trouble speaking or understanding, sudden trouble seeing in one or both eyes, sudden trouble walking, dizziness, loss of balance or coordination, sudden severe headache with no cause. Call 911 or go to the Emergency Room. CONGESTIVE HEART FAILURE: If you have been diagnosed with Congestive Heart Failure (CHF) and your symptoms return, make an appointment with your physician Weigh yourself daily. Notify your physician if you have a weight gain of two or more pounds in one day or five or more pounds in one week. If you experience any difficulty breathing, please call 911 BLEEDING: Although the risk of bleeding is minimal, it can happen. If you have any bleeding from the site, apply firm pressure above the puncture site for 10-15 minutes. If the bleeding does not stop, continue manual pressure and call 911 Contact your physician if: You develop a fever greater than 101 degrees Fahrenheit Your site becomes reddened or has any drainage You have an increase in pain or burning at the site or if a large knot forms at the site. If you experience chest pain, shortness of breath, dizziness, or extreme tiredness, stop the activity and rest. Please notify your physicians office if you experience any of these symptoms and they are not relieved by rest please call 911! Referrals: Brent Weaver Jr, MD [Primary Care Provider] - (SENT WEB REQUEST ON 11-29-16 @ [phone]) Raymond Briones CNP [Advanced Practice Nurse] - (cardiology will call patient at home with follow up appointment, due to they make there own appointments now.) Joanna Husain CNP [Advanced Practice Nurse] - 12/06/16 11:00 am NO,PCP [Non-Partnered Physician] - Prescriptions: Atorvastatin [Lipitor] 80 mg PO HS #30 tablet Clopidogrel [Plavix] 75 mg PO DAILY #30 tablet Digoxin [Lanoxin] 0.125 mg PO QOD #30 tablet Diltiazem CD (24hr) [Cardizem CD] 120 mg PO DAILY #30 cap.er.24h Levothyroxine [Synthroid] 100 mcg PO 0630 #30 tablet Metoprolol XL (24 HR) Succ [Toprol Xl] 25 mg PO BID #60 tab.er.24h Nitroglycerin [Nitrostat] 0.4 mg SL PRN PRN #30 tab.subl PRN Reason: Chest Pain
[2016-12-01] MEDS: Sodium Bicarbonate 75 MEQ in 0.45 % Sodium Chloride 1,000 ML IVC SCH (15:56)
[2016-12-01] MEDS ORDERED: *HR* LORazepam 1 MG TABLET PO ONE (19:57)
[2016-12-02 03:50] LABS: BUN/Creatinine Ratio 18 (6-26); Blood Urea Nitrogen 22 mg/dL (8-26); Calcium 8.6 mg/dL (8.6-10.8); Carbon Dioxide 18 mEq/L (19-29); Chloride 108 mEq/L (98-109); Glucose 101 mg/dL (70-99); Osmolality,Calculated 285 (280-300); Potassium 3.8 mEq/L (3.5-4.5); Sodium 136 mEq/L (136-145); eGFR For African Americans > 60 (> 60); eGFR For Non-African Americans > 60 (> 60)
[2016-12-02 07:35] VITALS: BP 134/97
[2016-12-02] MEDS: Metoprolol XL (24 HR) Succ 25 MG TAB.ER.24H PO SCH (08:42)
[2016-12-02] MEDS: Diltiazem CD (24hr) 120 MG CAPSULE PO SCH (08:42)
[2016-12-02] MEDS: Aspirin 81 MG TAB.CHEW PO SCH (08:44)
--- NOTE | 2016-12-02 09:41 | Discharge Summary ---
Date of Encounter: 12/02/16 Time of Encounter: 09:00 - Discharge Diagnosis (1) ST elevation myocardial infarction (STEMI) Priority: Primary Status: Acute Comments: Status post STEMI with MIGUEL to circumflex. On dual antiplatelet therapy un- interrupted for at least one year. Will follow as outpatient. Qualifiers: Involved coronary artery: other inferior wall coronary artery Qualified Code(s): I21.19 - ST elevation (STEMI) myocardial infarction involving other coronary artery of inferior wall (2) MAEVE (acute kidney injury) Priority: Secondary Status: Resolved Comments: MAEVE now resolved. Suspected related to dehydration secondary to diarrhea. No diarrhea today. (3) Diarrhea Priority: Secondary Status: Acute Comments: Patient with multiple episodes of diarrhea for several days. No diarrhea noted for 2 days. Qualifiers: Diarrhea type: unspecified type Qualified Code(s): R19.7 - Diarrhea, unspecified (4) PAF (paroxysmal atrial fibrillation) Priority: Secondary Status: Acute Comments: Patient with PAF after DC and stenting. Now SB with HR 56. On beta titi, calcium channel titi, and digoxin every other day. On asa, no xarelto due to bloody diarrhea. WIll consider re-starting xarelto in outpatient setting. (5) Blood in stool Priority: Secondary Status: Resolved Comments: Blood in stool several days ago on xaretlo. NO blood in stool for 3 days. (6) Hypothyroidism Priority: Secondary Status: Chronic Comments: Patient will follow up with PCP for thyroid. Qualifiers: Hypothyroidism type: unspecified Qualified Code(s): E03.9 - Hypothyroidism , unspecified (7) Shortness of breath Priority: Secondary Status: Resolved Comments: Suspected possibly related to brilinta. Now on plavix with no recurrence of shortness of breath. - Discharge Medications Prescriptions: Atorvastatin [Lipitor] 80 mg PO HS #30 tablet Clopidogrel [Plavix] 75 mg PO DAILY #30 tablet Digoxin [Lanoxin] 0.125 mg PO QOD #30 tablet Diltiazem CD (24hr) [Cardizem CD] 120 mg PO DAILY #30 cap.er.24h Levothyroxine [Synthroid] 100 mcg PO 0630 #30 tablet Metoprolol XL (24 HR) Succ [Toprol Xl] 25 mg PO BID #60 tab.er.24h Home Medications: Duloxetine [Cymbalta] 30 mg PO BID 12/01/16 [History] Omeprazole [PriLOSEC] 40 mg PO DAILY 08/01/16 [History] Aspirin 81 mg PO DAILY tab.chew 12/02/16 [Rx] Atorvastatin [Lipitor] 80 mg PO HS #30 tablet 12/02/16 [Rx] Clopidogrel [Plavix] 75 mg PO DAILY #30 tablet 12/02/16 [Rx] Digoxin [Lanoxin] 0.125 mg PO QOD #30 tablet 12/02/16 [Rx] Diltiazem CD (24hr) [Cardizem CD] 120 mg PO DAILY #30 cap.er.24h 12/02/16 [Rx] Levothyroxine [Synthroid] 100 mcg PO 0630 #30 tablet 12/02/16 [Rx] Metoprolol XL (24 HR) Succ [Toprol Xl] 25 mg PO BID #60 tab.er.24h 12/02/16 [Rx] Nitroglycerin [Nitrostat] 0.4 mg SL PRN PRN #30 tab.subl 12/02/16 [Rx] Allergies/Adverse Reactions: Allergies codeine Adverse Reaction (Severe, Verified 08/01/16 12:02) Abdominal Pain severe pain Procedures/tests Complete & Pending: Procedures Performed prior 72 hours Category Date Time Status US retroperitoneal comp [US] Routine Exams 11/30/16 14:00 Completed Date of admission: 11/26/16 17:01 Primary care physician: Brent Weaver Jr, MD Consults: 11/29/16 12:15 Consult to Nephrology [CONS] Routine Consulting Provider: Kidney Sharonda/BRITNEY/MARY/AROLDO Reason for Consult: MAEVE Call Completed: Yes Discharging clinician: Raymond Briones Anticipated date of discharge: 12/02/16 - Patient Status Disposition: Home, Self-Care Condition: Good Functional capacity at discharge: independent ambulation Overall status at discharge: patient is progressing back to baseline - Discharge Instructions Instructions: Myocardial Infarction (DC), Atrial Fibrillation (DC), Left Heart Catheterization (DC), Coronary Intravascular Stent Placement (DC), Hypothyroidism (DC) Follow Up With: Brent Weaver Jr, MD [Primary Care Provider] - (SENT WEB REQUEST ON 11-29-16 @ [id number]) Raymond Briones CNP [Advanced Practice Nurse] - (cardiology will call patient at home with follow up appointment, due to they make there own appointments now.) Joanna Husain, INSPECTOR DIALS [Advanced Practice Nurse] - 12/06/16 11:00 am NO,PCP [Non-Partnered Physician] - Additional Instructions: RISK FACTORS: STOP SMOKING: If you smoke, STOP. Smoking or tobacco use significantly increases your risk of heart disease because nicotine causes the arteries to narrow or constrict. It also causes fats to stick to the artery. Your chances of having a heart attack are greatly increased if you continue to smoke. For more information, call the education line for smoking cessation 1-319-QMGXGVG EAT A LOW FAT/CHOLESTEROL/SODIUM DIET: This diet may help reduce your chances of having a heart attack. LIFTING: Avoid lifting anything more than 10 pounds for 5-7 days Prior to straining, laughing, sneezing and/or coughing, apply manual pressure directly over insertion site. ACTIVITY: You may walk or climb stairs as tolerated You can resume sexual activity as tolerated In general, you are encouraged to engage in a minimum of 30 minutes or more of moderate intensity physical activity, such as brisk walking, daily or at least 3 -4 times weekly BATHING Do not submerge the site into water (bath tub, hot tub, swimming pool) for 1 week. This can be a source for infection into the blood stream. You may shower after 24 hours SITE CARE: After 24 hours, you may remove the dressing and leave the site open to air. Keep the site clean and dry. Clean gently and pat dry. You can expect bruising and tenderness that gradually resolve within a week or two. Return to work as instructed per your physician Resume driving as instructed per physician Keep all scheduled follow up appointments Resume medications as instructed IMPORTANT: If prescribed a Platelet Aggregation Inhibitor such as, Plavix, Brilinta or Effient: Duration of therapy is minimum one year These medications are often used in combination with Aspirin in prevention of future heart attacks Never discontinue unless consult with your System Support Technician STROKE (CVA) Risk factors for a stroke are: Age, cigarette smoking, diabetes, excessive alcohol consumption, family history, high blood pressure, overweight, physical inactivity, prior stroke, heart attack, diagnosis of carotid artery stenosis or other artery disease. Warning signs: Sudden numbness or weakness of the face, arm or leg; especially on one side of the body, sudden confusion, trouble speaking or understanding, sudden trouble seeing in one or both eyes, sudden trouble walking, dizziness, loss of balance or coordination, sudden severe headache with no cause. Call 911 or go to the Emergency Room. CONGESTIVE HEART FAILURE: If you have been diagnosed with Congestive Heart Failure (CHF) and your symptoms return, make an appointment with your physician Weigh yourself daily. Notify your physician if you have a weight gain of two or more pounds in one day or five or more pounds in one week. If you experience any difficulty breathing, please call 911 BLEEDING: Although the risk of bleeding is minimal, it can happen. If you have any bleeding from the site, apply firm pressure above the puncture site for 10-15 minutes. If the bleeding does not stop, continue manual pressure and call 911 Contact your physician if: You develop a fever greater than 101 degrees Fahrenheit Your site becomes reddened or has any drainage You have an increase in pain or burning at the site or if a large knot forms at the site. If you experience chest pain, shortness of breath, dizziness, or extreme tiredness, stop the activity and rest. Please notify your physicians office if you experience any of these symptoms and they are not relieved by rest please call 911! - Diet and Activity Activity: increase activity as tolerated Diet: low fat, low cholesterol, low salt diet - Hospital Course Hospital course: Mr. Rocha is a 70 year old male who was admitted with an acute STEMI, with MIGUEL to circumflex artery. Patient was placed on asa and brilinta. Patient developed shortness of breath on brilinta and anti-platelet therapy was changed to plavix. Since on plavix, patient has had no recurrence of shortness of breath. Patient had paroxysmal atrial fibrillation after [facility]. Patient was started on cardizem drip and xarelto for a.fib. Patient was rate controlled on cardizem drip and cardizem drip was converted to cardizem CD 120mg po daily. WHile on xarelto patient developed bloody diarrhea and xarelto was stopped. Patient has not had any bloody stools in 3 days and has not had diarhea in 2 days. Patient went back into atrial fibribrillation with RVR. Digoxin modified loading dose was given due to renal function. Digoxin was started on an every other day schedule. Patient now sinus bradycardia with HR 56.Patient also had MAEVE this admission. Nephrology was consulted. Renal ultrasound and IV fluids were done. Creatinine is 1.19 today. Creatinine on admission 1.42 and peaked at 2.15. Per nephrology note, it was felt that MAEVE was related to diarrhea and dehydration. Patient is being discharged today in stale condition. Patient will follow up in cardiology office in 1 week. Will consider re-starting xarelto in outpatient setting. (AVERY) - Time Spent with Patient Total time spent providing and/or coordinating discharge services: Greater than 30 minutes Physical Examination Vital Signs, Last 4 Hours Temp Pulse Resp BP Pulse Ox 12/02/16 08:30 97.6 F 53 16 134/97 97 12/02/16 07:25 97.6 F 53 16 134/97 97 General: Conversant, No Apparent Distress HEENT: Atraumatic, Normocephaly, Mucus Membranes Moist Neck: No JVD, Normal carotid pulses Cardiac: Reg Rate and Rhythm, Normal S1 and S2, No Murmur Lungs: Normal Breath Sounds, No Wheeze, Rales, Rhonchi Neuro: Alert and responsive Abdomen: Soft, Non-Tender Skin: No rashes noted on visualized skin Musculoskeletal: No Chest Wall Tenderness Extremities: No Clubbing, No Cyanosis, No Edema, Normal Pulses
--- NOTE | 2016-12-02 13:24 | Electrocardiograph Report ---
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
--- NOTE | 2016-12-03 17:34 | Electrocardiograph Report ---
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
== END 2016-12-02 12:30 | disposition home or self-care (01) | DRG 247 ==
LOC: ICNU 13:48 → EMEROO 13:48 → ICNU 14:00 → 2NNU 11-28 19:47
PROVIDERS: ADMIT Emergency Medicine; ATTEND Emergency Medicine

== ENCOUNTER 2020-05-25 05:32 | Inpatient (IN) ==
[2020-05-25 06:04] LABS: Basophils % 0.3 %; Eosinophils # 1.3 K/mcL (0.0-0.6); Eosinophils % 9.9 %; Hematocrit 41.9 % (37.5-50.1); Hemoglobin 13.4 g/dL (12.9-16.9); Immature Granulocytes % 0.2 % (0-4); Lymphocytes # 4.7 K/mcL (0.6-4.6); Lymphocytes % 37.1 %; Mean Corpuscular Hemoglobin 31.2 pg (28.0-33.3); Mean Corpuscular Volume 97.4 fL (83.0-100.0); Mean Platelet Volume 12.4 fL (9.4-12.4); Monocytes % 7.6 %; Neutrophils # 5.7 K/mcL (1.6-8.9); Platelet Count 278 K/mcL (140-400); Red Cell Distribution Width 16.2 % (11.5-14.5); Segmented Neutrophils % 44.9 %; White Blood Count 12.6 K/mcL (4.3-11.1)
[2020-05-25 06:07] LABS: INR 1.6; Prothrombin Time 18.4 Seconds (9.4-12.1)
[2020-05-25 06:09] LABS: Activated Partial Thrombo Time 48.8 Seconds (26.0-36.0)
[2020-05-25 06:10] LABS: Bilirubin,Urine Negative (Negative); Blood,Urine Negative (Negative); Clarity,Urine Clear (Clear); Color,Urine Yellow (Yellow); Glucose,Urine (UA) Normal (Normal); Ketones,Urine Negative (Negative); Leukocyte Esterase,Urine Negative (Negative); Nitrite,Urine Negative (Negative); PH,Urine 5.5 pH Units (5.0-8.0); Protein,Urine Trace mg/dL (Neg-Trace); Specific Gravity,Urine 1.021 (1.010-1.025); Urobilinogen,Urine Normal (Normal)
[2020-05-25 06:31] LABS: ABG Base Excess 5 mEq/L (-2 to 3); ABG HCO3 34 mEq/L (21-27); ABG Oxygen Saturation 94 % (95-98); ABG PCO2 70 mmHg (35-45); ABG PH 7.29 pH Units (7.32-7.45); ABG PO2 81 mmHg (85-104); ABG TCO2 36 mEq/L (20-26)
[2020-05-25 06:58] LABS: Alanine Aminotransferase 5 Units/L (7-52); Albumin 3.1 g/dL (3.5-5.7); Albumin/Globulin Ratio 0.9 (1.1-2.2); Alkaline Phosphatase 57 Units/L (34-104); Aspartate Amino Transferase 13 Units/L (13-39); BUN/Creatinine Ratio 9 (6-26); Bilirubin,Total 0.3 mg/dL (0.3-1.0); Blood Urea Nitrogen 15 mg/dL (8-23); Calcium 8.8 mg/dL (8.6-10.3); Carbon Dioxide 30 mEq/L (23-29); Chloride 102 mEq/L (98-107); Globulin 3.6 g/dL (2.4-3.5); Glucose 81 mg/dL (70-105); Osmolality,Calculated 286 (280-300); Potassium 4.5 mEq/L (3.5-5.1); Sodium 138 mEq/L (136-145); Total Protein 6.7 g/dL (6.4-8.9); Troponin I < 0.03 ng/mL (< 0.04); eGFR For African Americans 51 (> 60); eGFR For Non-African Americans 42 (> 60)
[2020-05-25 07:07] LABS: Adenovirus Not Detected (Not Detect); Bordetella Pertussis Not Detected (Not Detect); Chlamydophila pneumoniae Not Detected (Not Detect); Coronavirus 229E Not Detected (Not Detect); Coronavirus HKU1 Not Detected (Not Detect); Coronavirus NL63 Not Detected (Not Detect); Coronavirus OC43 Not Detected (Not Detect); Human Metapneumovirus Not Detected (Not Detect); Human Rhinovirus/Enterovirus Not Detected (Not Detect); Influenza A Subtype 2009 H1 Not Detected (Not Detect); Influenza B Not Detected (Not Detect); Mycoplasma pneumoniae Not Detected (Not Detect); Parainfluenza Virus 1 Not Detected (Not Detect); Parainfluenza Virus 2 Not Detected (Not Detect); Parainfluenza Virus 3 Not Detected (Not Detect); Parainfluenza Virus 4 Not Detected (Not Detect); Respiratory Syncytial Virus Not Detected (Not Detect); SARS-CoV-2 Not Detected (Not Detect)
[2020-05-25] MEDS ORDERED: Ondansetron 4 MG/2 ML VIAL IVP PRN (07:30)
[2020-05-25] MEDS ORDERED: Naloxone 0.4 MG/ML INJ IVP PRN (07:30)
[2020-05-25] MEDS ORDERED: Acetaminophen 325 MG TABLET PO PRN (07:30)
[2020-05-25] MEDS: *HR* Atropine Sulfate 1 MG/10 ML SYRINGE IVP SCH (10:08)
[2020-05-25] MEDS: D5% in 0.9% NACL 1,000 ML IVC SCH ×2 (10:08→21:27)
[2020-05-25 11:03] LABS: VBG HCO3 32 mEq/L (21-27); VBG PCO2 59 mmHg (41-51); VBG PH 7.34 pH Units (7.32-7.42); VBG PO2 186 mmHg (25-50)
[2020-05-25 11:19] LABS: Digoxin 0.4 ng/mL (0.8-2.0)
[2020-05-25 11:59] LABS: Thyroid Stimulating Hormone 193.396 mcIU/mL (0.340-5.600)
[2020-05-25] MEDS ORDERED: *HR* Atropine Sulfate 1 MG/10 ML SYRINGE IVP PRN (12:04)
[2020-05-25] MEDS: *HR* Heparin 5,000 UNIT/ML VIAL SQ SCH ×2 (14:20→21:13)
[2020-05-25 14:28] LABS: VBG HCO3 32 mEq/L (21-27); VBG PCO2 63 mmHg (41-51); VBG PH 7.31 pH Units (7.32-7.42); VBG PO2 80 mmHg (25-50)
[2020-05-25 18:06] LABS: VBG HCO3 32 mEq/L (21-27); VBG PCO2 56 mmHg (41-51); VBG PH 7.37 pH Units (7.32-7.42); VBG PO2 199 mmHg (25-50)
[2020-05-25] MEDS: Atropine Sulfate 1% 40 DROP/2 ML BOTTLE SL PRN ×2 (19:59→23:38)
[2020-05-25 22:15] LABS: VBG HCO3 34 mEq/L (21-27); VBG PCO2 76 mmHg (41-51); VBG PH 7.26 pH Units (7.32-7.42); VBG PO2 106 mmHg (25-50)
[2020-05-25] MEDS ORDERED: Morphine Sulfate 2 MG/ML SYRINGE IVP ONE (23:18)
[2020-05-26] MEDS: D5% in 0.9% NACL 1,000 ML IVC SCH (03:39)
[2020-05-26] MEDS: Morphine Sulfate 2 MG/ML SYRINGE IVP PRN ×9 (03:50→21:56)
[2020-05-26] MEDS: Atropine Sulfate 1% 40 DROP/2 ML BOTTLE SL PRN ×3 (03:56→15:46)
[2020-05-26] MEDS: *HR* Heparin 5,000 UNIT/ML VIAL SQ SCH (05:04)
[2020-05-26 06:49] LABS: Basophils % 0.2 %
[2020-05-26 06:50] LABS: Basophils # 0.1 K/mcL (0.0-0.2); Hematocrit 49.1 % (37.5-50.1); Hemoglobin 15.1 g/dL (12.9-16.9); Immature Granulocytes % 0.5 % (0-4); Lymphocytes # 1.3 K/mcL (0.6-4.6); Mean Corpuscular HGB Conc 30.8 g/dL (31.6-35.5); Mean Corpuscular Hemoglobin 30.6 pg (28.0-33.3); Mean Corpuscular Volume 99.6 fL (83.0-100.0); Mean Platelet Volume 12.7 fL (9.4-12.4); Monocytes # 3.3 K/mcL (0.0-1.3); Platelet Count 279 K/mcL (140-400); Red Blood Count 4.93 M/mcL (4.19-5.50); Red Cell Distribution Width 16.4 % (11.5-14.5); White Blood Count 25.6 K/mcL (4.3-11.1)
[2020-05-26 07:09] LABS: BUN/Creatinine Ratio 11 (6-26); Blood Urea Nitrogen 13 mg/dL (8-23); Calcium 8.9 mg/dL (8.6-10.3); Carbon Dioxide 30 mEq/L (23-29); Chloride 103 mEq/L (98-107); Glucose 108 mg/dL (70-105); Magnesium 2.1 mg/dL (1.6-2.6); Osmolality,Calculated 291 (280-300); Potassium 4.1 mEq/L (3.5-5.1); Sodium 140 mEq/L (136-145); eGFR For African Americans > 60 (> 60); eGFR For Non-African Americans > 60 (> 60)
[2020-05-26 07:58] LABS: Platelet Estimate Normal (Normal); Reactive Lymphocytes Present (Not Present)
[2020-05-26 07:59] LABS: Large Platelets Present (Not Present)
[2020-05-26 08:08] LABS: Neutrophils # 25.5 K/mcL (1.6-8.9)
[2020-05-26] MEDS ORDERED: Glycopyrrolate 0.2 MG/ML VIAL IVP ONE (08:27)
[2020-05-26] MEDS ORDERED: Scopolamine Patch 1.5 MG PATCH.TD72 TD SCH (08:30)
[2020-05-26] MEDS ORDERED: Divalproex (12 HR) 250 MG TABLET PO SCH (09:00)
[2020-05-26] MEDS ORDERED: Aspirin 81 MG TAB.CHEW PO SCH (09:00)
[2020-05-26] MEDS ORDERED: polyethylene glycoL 3350 17 GM POWD.PACK PO SCH (09:00)
[2020-05-26] MEDS ORDERED: Finasteride 5 MG TABLET PO SCH (09:00)
[2020-05-26] MEDS: *HR* LORazepam 2 MG/ML VIAL IVP PRN ×7 (10:27→21:57)
[2020-05-26] MEDS ORDERED: Glycopyrrolate 0.2 MG/ML VIAL IVP SCH (19:00)
[2020-05-26] MEDS: Glycopyrrolate 0.2 MG/ML VIAL IVP SCH ×2 (19:43→23:39)
[2020-05-26] MEDS ORDERED: Divalproex (12 HR) 500 MG TABLET PO SCH (21:00)
[2020-05-27] MEDS: *HR* LORazepam 2 MG/ML VIAL IVP PRN ×12 (01:23→23:12)
[2020-05-27] MEDS: Morphine Sulfate 2 MG/ML SYRINGE IVP PRN ×12 (01:24→23:12)
[2020-05-27] MEDS: *HR* Atropine Sulfate 1 MG/10 ML SYRINGE IVP SCH ×6 (01:35→01:40)
[2020-05-27] MEDS: Glycopyrrolate 0.2 MG/ML VIAL IVP SCH ×3 (07:32→23:12)
[2020-05-27] MEDS: Atropine Sulfate 1% 40 DROP/2 ML BOTTLE SL PRN (07:32)
[2020-05-27] MEDS ORDERED: Acetaminophen 650 MG RECTAL SUPP RC PRN (10:26)
[2020-05-27] MEDS: Lacri-Lube 3.5 GM TUBE BOTH EYES SCH ×2 (14:18→19:29)
[2020-05-27 20:01] VITALS: BP 94/61
[2020-05-28] MEDS: Morphine Sulfate 2 MG/ML SYRINGE IVP PRN ×5 (00:26→06:06)
[2020-05-28] MEDS: *HR* LORazepam 2 MG/ML VIAL IVP PRN ×5 (00:26→06:06)
== END 2020-05-28 07:06 | disposition expired | DRG 682 ==
LOC: CDU 05:32 → EMEROOARM 05:32 → SUATTDRO 08:06 → CDU 08:41 → 2ANU 13:12
PROVIDERS: ADMIT Pharmacist; ATTEND Internal Medicine